=== PATIENT | male | born 1940 | race Caucasian/White ===

== ENCOUNTER → 2018-06-27 10:35 | Outpatient (REF) | payer OTHER, SELFPAY ==
[2018-06-27 20:53] LABS: HCT 42.7 % (40.0-50.0); HGB 13.7 g/dL (13.5-17.5)
[2018-06-27 21:09] LABS: ALT 30 U/L (12-78); AST 21 U/L (15-37); Albumin 3.9 g/dL (3.4-5.0); Alkaline Phosphatase 126 U/L (46-116); Anion Gap 9.1 mmol/L (3-11); BUN 16 mg/dL (7-18); Bilirubin, Total 0.7 mg/dL (0.2-1.0); CO2 23.9 mmol/L (21.0-32.0); CREATININE 1.56 mg/dL (0.70-1.30); Calcium 8.8 mg/dL (8.5-10.1); Chloride 107 mmol/L (98-107); Cholesterol 120 mg/dL (50-200); Estimated GFR 43.04 (mL/min/1.73m2); Glucose 123 mg/dL (70-100); HDL Cholesterol 46 mg/dL (40-60); LDL CHOLESTEROL 61 mg/dL (<100); Potassium 4.9 mmol/L (3.5-5.1); Sodium 140 mmol/L (136-145); Total Protein 7.1 g/dL (6.4-8.2); Triglyceride 119 mg/dL (30-150)
== END ==
LOC: NCHCN 10:35
PROVIDERS: PCP Family Medicine; Visit Provider Family Medicine
DX: E11.65 Type 2 diabetes mellitus with hyperglycemia (principal); E78.5 Hyperlipidemia, unspecified; C67.9 Malignant neoplasm of bladder, unspecified; Z93.6 Other artificial openings of urinary tract status
CPT/HCPCS: 80053; 80061; 83721; 85014; 85018

== ENCOUNTER 2019-06-24 14:44 | Outpatient (REF) | payer OTHER, SELFPAY ==
[2019-06-24 21:41] LABS: HGB 14.1 g/dL (13.5-17.5); Mean Corpuscular Hemoglobin 29.1 pg (27.0-33.0); Mean Corpuscular Volume 90.9 fL (80-95); Mean Platelet Volume 11.8 fL (8.0-11.0); Platelet Count 276 x1000/uL (130-400); RBC 4.84 m/cumm (4.50-6.00); RBC Distribution Width 16.8 % (11.8-14.1); White Blood Cell Count 8.13 k/cumm (4.4-10.8)
[2019-06-24 22:06] LABS: ALT 18 U/L (16-63); AST 20 U/L (15-37); Albumin 4.1 g/dL (3.4-5.0); Alkaline Phosphatase 182 U/L (46-116); Anion Gap 15.7 mmol/L (3-11); BUN 45 mg/dL (7-18); Bilirubin, Total 0.5 mg/dL (0.2-1.0); CO2 11.3 mmol/L (21.0-32.0); CREATININE 2.72 mg/dL (0.70-1.30); Calcium 8.7 mg/dL (8.5-10.1); Chloride 113 mmol/L (98-107); Glucose 146 mg/dL (70-100); Sodium 140 mmol/L (136-145); TSH (W/Ref FT4) 1.79 uIU/mL (0.36-3.74)
[2019-06-24 22:23] LABS: ESR 26 mm/hr (1-20)
[2019-06-24 22:27] LABS: C-Reactive Protein 1.25 mg/dL (0.0-0.3); Total Protein 7.8 g/dL (6.4-8.2)
== END 2019-06-24 15:04 ==
LOC: NCHCN 14:44
PROVIDERS: PCP Family Medicine; Visit Provider Family Medicine
DX: R63.4 Abnormal weight loss (principal); E11.65 Type 2 diabetes mellitus with hyperglycemia; G70.00 Myasthenia gravis without (acute) exacerbation; R27.0 Ataxia, unspecified; R05 Cough; C67.9 Malignant neoplasm of bladder, unspecified
CPT/HCPCS: 80053; 85027; 85652; 84443; 86140

== ENCOUNTER 2019-07-04 14:38 | Outpatient (REF) | payer OTHER, SELFPAY ==
[2019-07-04 19:50] LABS: HCT 41.2 % (40.0-50.0); Mean Corp. HGB Concentration 31.6 g/dL (32.0-36.0); Mean Corpuscular Hemoglobin 28.7 pg (27.0-33.0); Mean Corpuscular Volume 90.9 fL (80-95); Mean Platelet Volume 11.5 fL (8.0-11.0); Platelet Count 265 x1000/uL (130-400); RBC 4.53 m/cumm (4.50-6.00); RBC Distribution Width 16.9 % (11.8-14.1); White Blood Cell Count 8.28 k/cumm (4.4-10.8)
[2019-07-04 19:57] LABS: Anion Gap 16.2 mmol/L (3-11); BUN 58 mg/dL (7-18); C-Reactive Protein 1.08 mg/dL (0.0-0.3); CO2 10.8 mmol/L (21.0-32.0); CREATININE 3.17 mg/dL (0.70-1.30); Calcium 8.4 mg/dL (8.5-10.1); Chloride 113 mmol/L (98-107); Estimated GFR 18.94 (mL/min/1.73m2); Glucose 209 mg/dL (70-100); Magnesium 1.7 mg/dL (1.8-2.4); Potassium 4.1 mmol/L (3.5-5.1); Sodium 140 mmol/L (136-145)
== END 2019-07-04 14:58 ==
LOC: NCHCN 14:38
PROVIDERS: PCP Family Medicine; Visit Provider Family Medicine
DX: N28.9 Disorder of kidney and ureter, unspecified (principal); R53.83 Other fatigue; S51.002A Unspecified open wound of left elbow, initial encounter
CPT/HCPCS: 80048; 85027; 83735; 84100; 86140; 87070; 87205

== ENCOUNTER 2019-07-22 15:05 | Outpatient (REF) | payer OTHER, SELFPAY ==
[2019-07-22 21:55] LABS: Anion Gap 10.7 mmol/L (3-11); BUN 30 mg/dL (7-18); CO2 29.3 mmol/L (21.0-32.0); CREATININE 2.76 mg/dL (0.70-1.30); Calcium 7.2 mg/dL (8.5-10.1); Chloride 100 mmol/L (98-107); Estimated GFR 22.22 (mL/min/1.73m2); Glucose 150 mg/dL (70-100); Magnesium 1.4 mg/dL (1.8-2.4); Potassium 3.5 mmol/L (3.5-5.1); Sodium 140 mmol/L (136-145)
== END 2019-07-22 15:25 ==
LOC: NCHCN 15:05
PROVIDERS: PCP Family Medicine; Visit Provider Family Medicine
DX: N28.9 Disorder of kidney and ureter, unspecified (principal); R63.4 Abnormal weight loss; E11.65 Type 2 diabetes mellitus with hyperglycemia
CPT/HCPCS: 80048; 83735; 84100

== ENCOUNTER → 2019-07-24 12:30 | Outpatient (BNVA) | payer OTHER, SELFPAY | PROVIDERS: PCP Family Medicine; Referring Provider Family Medicine; Visit Provider Psychiatry & Neurology Neurology | DX: G70.00 Myasthenia gravis without (acute) exacerbation (principal); G25.0 Essential tremor; R29.898 Other symptoms and signs involving the musculoskeletal system; I48.0 Paroxysmal atrial fibrillation; Z87.891 Personal history of nicotine dependence | CPT/HCPCS: 99215 ==

== ENCOUNTER 2019-07-25 12:45 | Outpatient (REF) | payer OTHER, SELFPAY ==
[2019-07-25 20:31] LABS: BUN 24 mg/dL (7-18); CREATININE 2.48 mg/dL (0.70-1.30); Calcium 7.4 mg/dL (8.5-10.1); Chloride 101 mmol/L (98-107); Estimated GFR 25.14 (mL/min/1.73m2); Glucose 217 mg/dL (70-100); Magnesium 1.4 mg/dL (1.8-2.4); PHOSPHORUS 2.1 mg/dL (2.6-4.7); Potassium 3.5 mmol/L (3.5-5.1); Sodium 139 mmol/L (136-145)
== END 2019-07-25 13:05 ==
LOC: NCHCN 12:45
PROVIDERS: PCP Family Medicine; Visit Provider Specialist/Technologist Athletic Trainer
DX: E87.2 Acidosis (principal); N28.9 Disorder of kidney and ureter, unspecified
CPT/HCPCS: 80048; 83735; 84100

== ENCOUNTER 2019-08-01 12:40 | Outpatient (REF) | payer OTHER, SELFPAY ==
[2019-08-01 19:12] LABS: HCT 34.3 % (40.0-50.0); HGB 10.5 g/dL (13.5-17.5); Mean Corp. HGB Concentration 30.6 g/dL (32.0-36.0); Mean Corpuscular Hemoglobin 29.4 pg (27.0-33.0); Mean Corpuscular Volume 96.1 fL (80-95); Mean Platelet Volume 11.3 fL (8.0-11.0); Platelet Count 258 x1000/uL (130-400); RBC 3.57 m/cumm (4.50-6.00); RBC Distribution Width 15.3 % (11.8-14.1); White Blood Cell Count 5.73 k/cumm (4.4-10.8)
[2019-08-01 19:28] LABS: ALT 15 U/L (16-63); AST 16 U/L (15-37); Alkaline Phosphatase 127 U/L (46-116); BUN 21 mg/dL (7-18); Bilirubin, Total 0.5 mg/dL (0.2-1.0); CREATININE 1.96 mg/dL (0.70-1.30); Calcium 8.3 mg/dL (8.5-10.1); Chloride 106 mmol/L (98-107); Estimated GFR 32.99 (mL/min/1.73m2); Glucose 174 mg/dL (70-100); Magnesium 1.7 mg/dL (1.8-2.4); PHOSPHORUS 2.5 mg/dL (2.6-4.7); Sodium 143 mmol/L (136-145); Total Protein 6.3 g/dL (6.4-8.2)
== END 2019-08-01 13:00 ==
LOC: NCHCN 12:40
PROVIDERS: PCP Family Medicine; Visit Provider Family Medicine
DX: E87.2 Acidosis (principal); N28.9 Disorder of kidney and ureter, unspecified
CPT/HCPCS: 80053; 85027; 83735; 84100

== ENCOUNTER 2019-08-20 16:23 | Outpatient (REF) | payer OTHER, SELFPAY ==
[2019-08-20 20:18] LABS: Anion Gap 9.4 mmol/L (3-11); BUN 22 mg/dL (7-18); CO2 27.6 mmol/L (21.0-32.0); CREATININE 1.86 mg/dL (0.70-1.30); Calcium 9.1 mg/dL (8.5-10.1); Chloride 106 mmol/L (98-107); Estimated GFR 35.04 (mL/min/1.73m2); Glucose 144 mg/dL (70-100); Potassium 4.3 mmol/L (3.5-5.1); Sodium 143 mmol/L (136-145)
== END 2019-08-20 16:43 ==
LOC: LBN 16:23
PROVIDERS: PCP Family Medicine; Visit Provider Family Medicine
DX: N18.3 Chronic kidney disease, stage 3 (moderate) (principal)
CPT/HCPCS: 80048

== ENCOUNTER 2019-09-02 12:49 | Outpatient (REF) | payer OTHER, SELFPAY ==
[2019-09-02 22:00] LABS: HCT 36.6 % (40.0-50.0); HGB 10.9 g/dL (13.5-17.5)
[2019-09-02 22:01] LABS: BUN 28 mg/dL (7-18); CREATININE 1.84 mg/dL (0.70-1.30); Calcium 9.2 mg/dL (8.5-10.1); Chloride 106 mmol/L (98-107); Estimated GFR 35.48 (mL/min/1.73m2); Glucose 327 mg/dL (70-100); Magnesium 2.1 mg/dL (1.8-2.4); Potassium 4.8 mmol/L (3.5-5.1); Sodium 142 mmol/L (136-145)
== END 2019-09-02 13:09 ==
LOC: NCHCN 12:49
PROVIDERS: PCP Family Medicine; Visit Provider Family Medicine
DX: N28.9 Disorder of kidney and ureter, unspecified (principal); K62.5 Hemorrhage of anus and rectum
CPT/HCPCS: 80048; 83735; 85014; 85018

== ENCOUNTER → 2019-09-29 14:56 | Outpatient (BNVA) | payer OTHER, SELFPAY | PROVIDERS: PCP Family Medicine; Referring Provider Family Medicine; Visit Provider Surgery | DX: K62.5 Hemorrhage of anus and rectum (principal); E11.9 Type 2 diabetes mellitus without complications; J44.9 Chronic obstructive pulmonary disease, unspecified | CPT/HCPCS: 99204; 99215 ==

== ENCOUNTER 2019-10-03 06:57 | Day surgery (SDC) | payer OTHER, SELFPAY ==
[2019-10-03 07:35] VITALS: BP 152/83; PULSE 72; RESP 16; TEMP 36.3; O2SAT 99
--- NOTE | 2019-10-03 07:59 | W.PM.DSUDISC ---
Discharge Plan Disposition Patient Disposition: HOME Condition: Good Discharge Details Reason For Visit: Colonoscopy Attending Provider: Adeline Jaramillo Primary Care Provider: Gala Carmichael V Home Meds and New Rx's Prescriptions: Continued pantoprazole [Protonix] 20 mg tablet,delayed release (DR/EC) 20 mg PO DAILY RF: 0 albuterol sulfate [ProAir HFA] 90 mcg/actuation HFA aerosol inhaler 2 puff IH Q6H PRNRF: 0 (DME) OneTouch Ultra Test 1 EACH strip 1 ea Miscellaneous BID RF: 0 (DME) lancets [OneTouch UltraSoft Lancets] 1 EACH misc 1 ea Miscellaneous BID RF: 0 (DME) blood-glucose meter [OneTouch UltraMini] 1 EACH kit 1 ea Miscellaneous BID RF: 0 simvastatin 20 MG tablet 20 mg PO DAILY RF: 0 aspirin 81 MG tablet,chewable 81 mg PO DAILY RF: 0 albuterol sulfate [ProAir HFA] 8.5 GM HFA aerosol inhaler 2 puff Inhalation Q6H PRN RF: 0 Atrovent HFA 12.9 GM HFA aerosol inhaler 34 mcg Inhalation Q6H PRN RF: 0 ascorbic acid (vitamin C) 500 mg capsule 500 mg PO DAILY RF: 0 Atrovent HFA 17 mcg/actuation HFA aerosol inhaler 2 puff IH QID PRNRF: 0 latanoprost 0.005 % drops 1 drp OP DAILY RF: 0 ipratropium-albuterol 0.5 mg-3 mg(2.5 mg base)/3 mL solution for nebulization 3 ml IH Q4H PRNRF: 0 pyridostigmine bromide 60 mg tablet 30 mg PO TID Qty: 270 RF: 3 sodium bicarbonate 650 mg Tablet 1,300 mg PO BID RF: 0 ergocalciferol (vitamin D2) [Vitamin D2] 50,000 unit Capsule 50,000 unit PO QWEEK RF: 0 magnesium oxide 400 mg magnesium Tablet 400 mg PO BID RF: 0 Discharge Instructions Additional Instructions: Findings: A mass was found in the colon. This was biopsied and my office will contact you with biopsy results. Follow up: A referral will be made to [place] [facility] [place]. Please call if you develop: fevers >101.5 Nausea or Vomiting Abdominal pain that is not transient DAY SURGERY UNIT POST COLONOSCOPY INSTRUCTIONS 1. Because there will be medication in your system for the next 24 hours, you may feel a little sleepy. Your coordination will be affected. Therefore: a. Do not drive or operate dangerous equipment for 24 hours. b. Do not drink alcohol beverages for 24 hours (not even beer). c. Plan to go home and rest for the day. 2. Generally there are no restrictions on your activity after a day or so has gone by, but you may feel a bit fatigued for a few days. 3 After you arrive home you may have a light meal and return to a normal diet as you can tolerate it without feeling sick to your stomach. 4. After surgery, you may feel pain or discomfort. This should be only transient, but if it persists please contact your doctor. 5. If there are any questions regarding the findings of your procedure, please feel free to contact your doctor. 6. If you are unable to contact your doctor with a problem, contact the hospital at [phone]. 7. Continue all your regular medications unless directed otherwise. I understand the above instructions and have no questions. Signature of Patient or Responsible Adult Escort Date/Time Name of Responsible Adult Escort Signature of Nurse Date/Time Activity:: Activity as Tolerated Diet:: As Tolerated Discharge Orders Discharge Orders: Discharge Order (Routine); Ordered 10/03/19 Ordered By: Adeline Jaramillo DS: Diagnosis Discharge Diagnosis (1) Colonic mass: Status: Acute
[2019-10-03] MEDS: Lactated Ringers 1,000 ML 80 ML IV (08:07)
[2019-10-03] MEDS: Endoscopic Tattoo 5 ML SYR IJ (08:51)
--- NOTE | 2019-10-03 08:54 | BOWEL_PTH ---
PATIENT: TAMIKA SORTO LOC: CHAR U#:[id number] AGE/SX: 79/M ROOM: RE10/03/[address]: Adeline Jaramillo MD : [id number] BED: DIS: 10/03/2019 SPEC #: [id number] RECD: 10/03/19 12:24 STATUS: OMAR REQ #: [id number] JULIETH: 10/03/19 08:[address]: Adeline Jaramillo DEPT: Surgical Specimen RECD BY: Moraima Pollard ENTERED: 10/03/19 12:25 SP TYPE: Bowel OTHR DR: Gala Carmichael V Tissues: 1 - BIOPSY BOWEL Procedures: GROSS AND MICRO LEVEL 4 Comments: [id number]
[2019-10-03 09:26] VITALS: BP 137/83; PULSE 62; RESP 16; TEMP 36.3; O2SAT 97
--- NOTE | 2019-10-03 12:54 | COLE_ITS ---
DATE OF PROCEDURE: October 03, 2019 PREOPERATIVE DIAGNOSIS: 1. Rectal bleeding. 2. Change in bowel habits. POSTOPERATIVE DIAGNOSIS: Mass at 20 cm PROCEDURE: Colonoscopy with tattooing and biopsy of colonic mass. SURGEON: Adeline Jaramillo M.D. ANESTHESIA: General. INDICATIONS: This is an 79-year-old man who has bleeding with almost every bowel movement. He also notes some urgency and incontinence. He denies abdominal pain. He has also had a decline in his hem oglobin to 10.9 from a normal value in May. He has not had a previous colonoscopy. PROCEDURE: He was placed in the left Whitman position. Propofol was titrated to sedation. Digital rec shannan examination revealed no abnormalities. The scope was advanced into the rectum. A mass was evide nt in the rectosigmoid region at 20 cm. This occupied about half the lumen of the colon, but was not causing an obstruction. This was quite friable and had an appearance consistent with a malignancy. The scope was advanced to the cecum without difficulty. The ileocecal valve and appendiceal orifice were clearly identified. The scope was slowly withdrawn with no other abnormalities seen within the ascending, transverse, or descending colon. Methylene Blue was injected once proximal to the mass a nd twice distal to the mass. The mass was then biopsied. The rectum was otherwise normal, including on retroflex view. He tolerated the procedure well and was stable to recovery. He will be referred to General Surgery at [facility] given his multiple comorbidities. cc: Gala Carmichael M.D.
== END 2019-10-03 10:15 | disposition home or self-care (01) ==
PROVIDERS: PCP Family Medicine; Visit Provider Surgery
PROC: 0DJD8ZZ Inspection of Lower Intestinal Tract, Via Natural or Artificial Opening Endoscopic (ICD-10-PCS; CPT 45378; principal; 2019-10-03 08:15)
DX: C18.7 Malignant neoplasm of sigmoid colon (principal); D64.9 Anemia, unspecified; R19.4 Change in bowel habit; K62.5 Hemorrhage of anus and rectum; E11.9 Type 2 diabetes mellitus without complications; K21.9 Gastro-esophageal reflux disease without esophagitis; J44.9 Chronic obstructive pulmonary disease, unspecified; Z85.51 Personal history of malignant neoplasm of bladder
CPT/HCPCS: 45380; 45381; 88305

== ENCOUNTER 2020-02-12 16:07 | Inpatient (IN) | payer OTHER, SELFPAY ==
[2020-02-12] VITALS (35 sets, daily range): BP systolic 102–158; BP diastolic 46–74; PULSE 59–87; RESP 18–38; TEMP 36.5–37.5; O2SAT 89–100
--- NOTE | 2020-02-12 16:15 | DI.RAD_ITS ---
EXAM: XR PORTABLE CHEST AP CLINICAL HISTORY: cough TECHNIQUE: 2D digital imaging was performed. COMPARISON: CHEST 2 VIEWS PA,LAT from 11/04/2013 FINDINGS: MEDIASTINUM: Normal. HEART: Normal. PULMONARY VASCULATURE: Normal. LUNGS: No focal consolidating infiltrate is present. Mild interstitial prominence. PLEURAL SPACE: No pleural effusion or pneumothorax. BONE:Within normal limits for the patient's age. OTHER FINDINGS:Interval placement of a dual lead cardiac device. IMPRESSION: Mild prominent interstitium. This may represent pulmonary edema or atypical infection. Please corre late clinically. DATA REPOSITORY: RADIATION DOSE DELIVERED:
--- NOTE | 2020-02-12 16:38 | ED.GENADUL_ITS ---
Discharge Plan Discharge Details Chief Complaint: Fever Admit Date/Time: 02/12/20 16:53 Admit Provider: Juli Armando Attending Provider: Juli Armando Primary Care Provider: Gala Carmichael V ED Provider: Gavino Rico Medical Decision Making 16:45 --79-year-old male here with cough, shortness of breath, fever and chills. Patient is saturating in upper 80s. Oxygen was applied and now saturating in low 90s on 2 L nasal cannula. He is tachypneic but otherwise with no respiratory distress. Patient is hemodynamically stable. Concern for pneumonia versus possibly COVID-19. Screening ECG was reviewed and interpreted by me: V paced, appropriately disc concordant, nondiagnostic. Decision to obtain outside hospital records from [facility] [place]. I received outside hospital records, colorectal surgery outpatient consultation note from 02/02/2020 which notes history of bladder cancer, chronic kidney disease stage III, COPD, myasthenia gravis, AAA, A. fib, hypertrophic cardiomyopathy, adenocarcinoma of the rectosigmoid, status post resection, declined chemotherapy and plan for continued surveillance. We will obtain stat portable chest x-ray. Plan to admit the patient to RICU. I called and spoke with the hospitalist, Dr. Armando, who will admit the patient but requested labs be resulted and reviewed pr ior to transfer to RICU. --I spoke with the transfer and pumphouse operator now a couple times. We are having the open the RICU unit and identify staffing. I spoke with the patient's and updated her as to plan. I have requested from the soakers supervisor capability to allow family to call and speak with the patient by video conferencing. Analysis Engineer is looking into this. Patient's has a cell phone . --I reviewed chest x-ray: question right middle lobe infiltrate. Plan to treat with ceftriaxone 1 g IV and azithromycin 500 mg IV. 17:45 --Chest x-ray was reviewed and interpreted by radiology: Prominent indistinct pulmonary vasculature consistent with pulmonary edema versus less likely atypical infection. No focal consolidation. Interval placement left implantable cardiac device with lead projecting over the right atrium and right ventricular apex. Concern for potential COVID-19. Patient should be considered high risk PUI. 19:45 --patient has elevated d-dimer, pulmonary vascular prominence on chest x- ray, and slightly elevated troponin. Consider pulmonary embolism. Unfortunately unable to obtain CT chest given renal impairment. Lovenox contraindicated given GFR. Plan to treat with heparin for potential PE. HPI General Mode of arrival: EMS . Date/Time Provider Initiated Documentation: 02/12/20 16:11 . Limitations to Documentation: language barrier (patient hard of hearing and cannot read lips 2/2 mask) . Information obtained by: EMS . HPI Narrative: 79-year-old male with multiple medical problems including history of myasthenia gravis, rectal cancer, bladder cancer, COPD, atrial fibrillation, abdominal aneurysm, diabetes, hypertrophic cardiomyopathy, here with chief complaint of cough. Patient has had cough for the past 2 days. Cough is intermittently productive. Cough is moderate with no modifiers. He has associated fever. Patient denies pain. No recent travel other than to [place]. History is limited secondary to patient inability to hear, does not know sign language, cannot read lips as facemask needed. Related Data Home Medications Medication Instructions Recorded Confirmed Atrovent HFA 34 mcg INHALATION Q6H PRN inhaler 09/06/16 02/12/20 OneTouch Ultra Test strip 09/06/16 09/29/19 albuterol sulfate [ProAir HFA] 2 puff INHALATION Q6H PRN inhaler 09/06/16 02/12/20 aspirin 81 mg PO DAILY tab-cap 09/06/16 02/12/20 blood-glucose meter [[employer]Touch kit 09/06/16 09/29/19 UltraMini] lancets [[employer] UltraSoft ea 09/06/16 09/29/19 Lancets] simvastatin 20 mg PO DAILY tab-cap 09/06/16 02/12/20 ascorbic acid (vitamin C) 500 mg 500 mg PO DAILY cap 07/11/19 02/12/20 capsule ipratropium 0.5 mg-albuterol 3 mg 3 ml IH Q4H PRN 07/11/19 02/12/20 (2.5 mg base)/3 mL nebulization soln ipratropium bromide 17 2 puff IH QID PRN 07/11/19 02/12/20 mcg/actuation HFA aerosol inhaler latanoprost 0.005 % eye drops 1 drp OP DAILY 07/11/19 02/12/20 pyridostigmine bromide 60 mg tablet 30 mg PO TID #270 tab-cap 07/24/19 02/12/20 albuterol sulfate 90 mcg/actuation 2 puff IH Q6H PRN 09/23/19 02/12/20 aerosol inhaler pantoprazole 20 mg tablet,delayed 20 mg PO DAILY 09/29/19 02/12/20 release ergocalciferol (vitamin D2) 50,000 unit PO QWEEK 10/01/19 02/12/20 [Vitamin D2] magnesium oxide 400 mg PO BID 10/01/19 02/12/20 sodium bicarbonate 650 mg PO BID 10/01/19 02/12/20 Allergies Allergy/AdvReac Type Severity Reaction Status Date / Time metformin Allergy Severe kidneys Verified 02/12/20 16:26 shut down lisinopril AdvReac Mild cough Unverified 02/12/20 16:41 General Stated Complaint: Fever ANTHONY: 2 Review of Systems Unobtainable due to (as per hpi) Cardiovascular Cardiovascular: Denies chest pain and Reports dyspnea Respiratory Respiratory: Reports cough and Reports dyspnea Gastrointestinal Gastrointestinal: Denies abdominal pain COUNTS INCLUDE 234 BEDS AT THE [facility] Medical History Abdominal aneurysm without mention of rupture (Acute) Allergic rhinitis (Acute) Atrial fibrillation (Chronic) COPD (chronic obstructive pulmonary disease) (Chronic) Diabetes mellitus (Chronic) GERD (gastroesophageal reflux disease) (Chronic) Hearing loss (Acute) Heart murmur (Acute) Hematochezia (Acute) Hypercholesterolemia (Acute) Hyperlipidemia (Acute) Hypertrophic cardiomyopathy (Acute) 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 Myasthenia gravis (Acute 10/16/16) Pacemaker (Acute) 2/2 heart block Shoulder fracture, right (Acute) Tobacco abuse (Acute) Surgical History H/O hernia repair (Chronic) H/O prostatectomy (Chronic) Cystoprostatectomy with bilateral lymphadenectomy with ileal loop urinary diversion 2010. H/O total cystectomy (Acute) S/P placement of cardiac pacemaker (Acute) 07/2018 S/P tonsillectomy and adenoidectomy (Acute) Family History Mother Glaucoma Brother Patient's brother is Sister Patient's sister is Social History Smoking/Tobacco Use Status: Former Tobacco Use Alcohol Intake: current Alcohol Intake frequency: a few times a week Drug use: Never Substance use type: does not use Household members: spouse current occupation: Retired maintenance Do you feel safe at home: Yes Exam Const General: cooperative HENMT Mouth: moist mucous membranes Eyes Conjunctivae: normal conjunctivae Sclera: normal sclerae Neck Neck: trachea midline, supple and no JVD Resp Effort & Inspection: not labored and tachypneic Auscultation: no rales and rhonchi Cardio Jugular venous pressure: no JVD Rate: regular rate and not tachycardic Rhythm: regular rhythm GI Palpation: soft, not firm, no guarding, no masses, not rigid and nontender Skin General skin exam: no rashes or lesions noted Neuro General: patient alert, patient awake and tone normal Extrem General: no calf tenderness and no edema Psych Appearance: grossly normal Mental Status: mental status grossly normal Course Vital Signs Vital signs: Vital Signs Temperature 36.9 C 02/12/20 16:06 Pulse 87 02/12/20 16:06 Respiratory Rate 38 H 02/12/20 16:06 Blood Pressure 158/67 H 02/12/20 16:06 Pulse Oximetry 89 L 02/12/20 16:06 Temperature 36.9 C 02/12/20 16:06 Temperature Source Skin 02/12/20 16:06 Pulse 87 02/12/20 16:06 Respiratory Rate 38 H 02/12/20 16:06 Respiratory Effort 02/12/20 16:21 Blood Pressure 158/67 H 02/12/20 16:06 Pulse Oximetry 94 L 02/12/20 16:15 Oxygen Delivery Method Nasal Cannula 02/12/20 16:15 Oxygen Flow Rate 2 02/12/20 16:15 Pain Level 0 02/12/20 16:06 Lab/Test Results Lab/Test Results: 02/12/20 16:19 Blood Blood Culture - Pending 02/12/20 16:19 Blood Blood Culture - Pending
--- NOTE | 2020-02-12 17:43 | DI.VRAD_ITS ---
PROCEDURE INFORMATION: Exam: XR Chest, 1 View Exam date and time: 02/12/2020 5:31 PM Age: 79 years old Clinical indication: Other: Cough; Prior surgery; Surgery date: 6+ months TECHNIQUE: Imaging protocol: XR of the chest Views: 1 view. COMPARISON: CR CHEST 2 VIEWS PA,LAT 11/04/2013 2:38 PM FINDINGS: Tubes, catheters and devices: Interval placement of a dual lead left implantable cardiac device. Lungs: Prominent, indistinct pulmonary vasculature. No focal consolidation. Pleural space: Unremarkable. No pleural effusion. No pneumothorax. Heart/Mediastinum: Unremarkable. No cardiomegaly. Bones/joints: Unremarkable. IMPRESSION: 1. Prominent, indistinct pulmonary vasculature consistent with pulmonary edema versus less likely atypical infection. No focal consolidation. 2. Interval placement left implantable cardiac device with leads projecting over the right atrium and right ventricular apex. Dictated and Authenticated by: Rome Marcos MD. Ordering:YOSEPH Mancia MD
[2020-02-12 17:51] LABS: Abs Immature Grans 0.05 k/cumm (0.0-0.09); Absolute Monocyte Count 0.61 k/cumm (0.11-0.7); Basophils % 0.1; HGB 12.6 g/dL (13.5-17.5); Immature Grans % 0.3 %; Lymphocytes % 2.3; Mean Corp. HGB Concentration 32.3 g/dL (32.0-36.0); Mean Corpuscular Hemoglobin 27.8 pg (27.0-33.0); Mean Corpuscular Volume 85.9 fL (80-95); Mean Platelet Volume 11.4 fL (8.0-11.0); Monocytes % 4.2; Neutrophils % 93.1; Platelet Count 130 x1000/uL (130-400); RBC 4.54 m/cumm (4.50-6.00); White Blood Cell Count 14.53 k/cumm (4.4-10.8)
[2020-02-12 17:55] LABS: Absolute Basophil Count 0.01 k/cumm (0.0-0.2); Absolute Lymphocyte Count 0.33 k/cumm (1.2-3.4); Absolute Neutrophil Count 13.53 k/cumm (1.2-6.7)
[2020-02-12] MEDS: cefTRIAXone 1 GM/50 ML BAG IVPB (18:05)
[2020-02-12 18:13] LABS: Lactate 1.6 mmol/L (0.6-1.4)
[2020-02-12 18:19] LABS: ALT 32 U/L (16-63); AST 37 U/L (15-37); Albumin 3.4 g/dL (3.4-5.0); Alkaline Phosphatase 155 U/L (46-116); Anion Gap 13.6 mmol/L (3-11); BUN 37 mg/dL (7-18); Bilirubin, Total 1.1 mg/dL (0.2-1.0); C-Reactive Protein 14.26 mg/dL (0.0-0.3); CO2 22.4 mmol/L (21.0-32.0); CREATININE 2.19 mg/dL (0.70-1.30); Calcium 9.2 mg/dL (8.5-10.1); Chloride 103 mmol/L (98-107); Estimated GFR 29.02 (mL/min/1.73m2); Glucose 241 mg/dL (74-106); LDH 176 U/L (85-227); Potassium 4.2 mmol/L (3.5-5.1); Sodium 139 mmol/L (136-145); Total Protein 7.6 g/dL (6.4-8.2)
[2020-02-12 18:21] LABS: Troponin I 0.07 ng/Ml (<0.06)
[2020-02-12 18:39] LABS: Troponin I 0.09 ng/Ml (<0.06)
[2020-02-12 18:42] LABS: D-Dimer 3925 ng/mlFEU (<500); Procalcitonin 31.6 ng/mL
[2020-02-12 18:45] LABS: Ferritin 99 ng/mL (26-388)
[2020-02-12] MEDS: Normal Saline 1,000 ML 125 ML IV (18:45)
[2020-02-12] MEDS: Normal Saline 250 ML 500 ML IV (18:48)
[2020-02-12] MEDS: AZITHROMYCIN 500 MG in Normal Saline 250 ML 250 MG IVPB (18:49)
--- NOTE | 2020-02-12 19:59 | W.PM.HP.N ---
Date of service: 02/12/20 Time of Service: 19:59 Assessment and Plan Assessment and plan (1) HCAP (healthcare-associated pneumonia): Status: Acute Assessment and plan: although his CXR did not demonstrate segmental or lobar consolidation, he definitely has focalized B lines in his RLL especially posteriorly. There are few scattered B lines at his LLL but not nearly as much so as in his RLL. I did not see any effusions nor any subpleural consolidations nor hepatization of his lung. He still could have COVID 19 although there has been no known exposure although I suppose he could have been exposed while at [facility] [place] however he is way past the incubation period. I think that his CXR just has not matured yet while his US has shown changes. he was put on Ceftriaxone and Azithromycin in the ER. I have switched the Ceftriaxone to Cefepime, added Vancomycin given his hospital exposure in the past 6 weeks and continued the Azithromycin although switched to oral to decr. that amount of fluids. Will test for Covid and RSV and screen for MRSA. Cont. supportive care w/ oxygen per PA and scheduled Combivent MDI and prn albuterol MDI. 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 I am not sure if he is currently taking this. When I interviewed him in the Respiratory unit it was difficult to communicated d/t his being hard of hearing and I was wearing a PAPR. Also I did not have his chemo information until I reviewed his [facility] [place]. He was last seen by Dr. Yousif Vasquez and Dr. Chris Ware at [facility] on 01/20 (3) Myasthenia gravis: Status: Acute Assessment and plan: continue current dose of pyridostigmine (4) Diabetes mellitus: Status: Chronic Assessment and plan: not currently on insulin treatment. previously was on metformin but discontinued d/t CKD. Will check A1c in the a.m. and put him on AC/HS glucose checks along w/ sliding scale insulin coverage. Qualifiers: Diabetes mellitus type: type 2 Diabetes mellitus nursing home insulin use: without terminal gauger use Diabetes mellitus complication status: with kidney complications Diabetes mellitus complication detail: with chronic kidney disease (5) COPD (chronic obstructive pulmonary disease): Status: Chronic Assessment and plan: given that he is being ruled out for COVID, I am not going to use corticosteroids but will put him on scheduled dosing of Combivent and prn albuterol MDI along w/ supplemental oxygen and parenteral antibiotics as outlined above. Qualifiers: COPD type: COPD with acute lower respiratory infection Qualified Code(s): J44.0 - Chronic obstructive pulmonary disease with (acute) lower respiratory infection (6) Chronic kidney disease: Status: Acute Assessment and plan: continue gently iv hydration and repeat his BMP in the a.m. Watch urine output closely. Qualifiers: Chronic kidney disease stage: stage 3 (moderate) Qualified Code(s): N18.3 - Chronic kidney disease, stage 3 (moderate) (7) Hypertrophic cardiomyopathy: Status: Acute Assessment and plan: I did a focused bedside echo and he has mild LV dysfunction w/ LVH particularly of his septum. Once his COVID 19 test comes back, then we can safely decide on getting a formal echo. For now I think that his primary problem is that of pneumonia. He has no peripheral edema to suggest overt volume overload and no pleural effusions and his B lines are more focal in the RLL as opposed to diffuse B line pattern in bilateral upper and lower lung zones which would have been more compatible w/ acute CHF (8) Elevated d-dimer: Status: Acute Assessment and plan: patient was started on heparin drip while in the ER per Dr. Rico d/t elevated d-dimer. While I can not disagree w/ this as the patient could have had a thromboembolic event (particularly if his COVID 19 test comes back positive), nevertheless he has no calf or thigh swelling or pain and his d-dimer could be elevated d/t bacterial pneumonia or d/t his underlying malignancy. Since his CKD precluded getting a formal CTA of his chest, I will continue his heparin drip for now. If his COVID 19 test is negative then we can get a V/Q scan and formal venous duplex of his legs. History of Present Illness History of Present Illness Chief Complaint: cough, short of breath, fever and chills Narrative: 79 yr old male w/ PMH of stg IIIA rectosigmoid adenocarcinoma s/p [place] 12/30/[place] [facility] [place], prior cystoprostatectomy for transitional cell CA in 2009, hx of COPD, HTN, hypertrophic cardiomyopathy, myasthenia gravis, CKD III, DM2 (not on insulin), PAF (not on anticoagulation), GERD and SSS s/p pacer. He presents w/ 2d cough prod. of purulent sputum, fever, rigors and dyspnea but no chest pain. He denies any ill contacts nor any association w/ anyone w/ COVID-19 nor any travel outside of [place] except to [facility] [place]last trip was for his surgery in early December). Upon arrival to the ER he was found to be acutely dyspneic and tachypneic (RR 38) and hypoxemic (SpO2 89%) which responded to O2 of 2 LPM to SpO2 of 94%. Labs: WBC 14,500 w/ 13,500 neutrophils, CMP: BUN 37, creatininie 2.19 (baseline 28 and 1.84 respectively). Lactate 1.6 and procalcitonin 31.6. Troponin 0.07, 0.09 and 0.08. d-dimer 3925. CXR w/ prominent indistinct pulmonary vascularture but no focal segmental or lobar consolidation, no pleural effusion, no cardiomegaly. Treatment in the ER included obtaining blood cultures and intiation of Ceftriaxone and Azithromycin and supplemental oxygen. Patient is now admitted to the Respiratory unit for treatment of pneumonia and to rule out COVID-19. [facility] Medical History (Updated 02/13/20 @ 01:14 by Stevenson Cannon) Abdominal aneurysm without mention of rupture (Acute) Allergic rhinitis (Acute) Atrial fibrillation (Chronic) Chronic kidney disease (Acute) COPD (chronic obstructive pulmonary disease) (Chronic) Diabetes mellitus (Chronic) GERD (gastroesophageal reflux disease) (Chronic) Hearing loss (Acute) Heart murmur (Acute) Hematochezia (Acute) Hypercholesterolemia (Acute) Hyperlipidemia (Acute) Hypertrophic cardiomyopathy (Acute) 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 Myasthenia gravis (Acute 10/16/16) Pacemaker (Acute) 2/2 heart block Shoulder fracture, right (Acute) Tobacco abuse (Acute) Surgical History (Updated 02/13/20 @ 00:54 by Stevenson Cannon) H/O hernia repair (Chronic) H/O prostatectomy (Chronic) Cystoprostatectomy with bilateral lymphadenectomy with ileal loop urinary diversion 2010. H/O total cystectomy (Acute) History of low anterior resection of rectum (Acute 12/30/19) [facility] [place] Zafar Carey S/P placement of cardiac pacemaker (Acute) 07/2018 S/P tonsillectomy and adenoidectomy (Acute) Family History Mother Glaucoma Brother Patient's brother is Sister Patient's sister is Social History Smoking/Tobacco Use Status: Former Tobacco Use Alcohol Intake: current Alcohol Intake frequency: a few times a week Drug use: Never Substance use type: does not use Household members: spouse current occupation: Retired maintenance Do you feel safe at home: Yes Meds Home Medications and Allergies Home Medications Medication Instructions Recorded Confirmed Type Atrovent HFA 34 mcg INHALATION Q6H PRN inhaler 09/06/16 02/12/20 History OneTouch Ultra Test strip 09/06/16 09/29/19 History albuterol sulfate [ProAir HFA] 2 puff INHALATION Q6H PRN inhaler 09/06/16 02/12/20 History aspirin 81 mg PO DAILY tab-cap 09/06/16 02/12/20 History blood-glucose meter [ServiceNowTouch kit 09/06/16 09/29/19 History UltraMini] lancets [ServiceNowTouch UltraSoft ea 09/06/16 09/29/19 History Lancets] simvastatin 20 mg PO DAILY tab-cap 09/06/16 02/12/20 History ascorbic acid (vitamin C) 500 mg 500 mg PO DAILY cap 07/11/19 02/12/20 History capsule ipratropium 0.5 mg-albuterol 3 mg 3 ml IH Q4H PRN 07/11/19 02/12/20 History (2.5 mg base)/3 mL nebulization soln ipratropium bromide 17 2 puff IH QID PRN 07/11/19 02/12/20 History mcg/actuation HFA aerosol inhaler latanoprost 0.005 % eye drops 1 drp OP DAILY 07/11/19 02/12/20 History pyridostigmine bromide 60 mg tablet 30 mg PO TID #270 tab-cap 07/24/19 02/12/20 History albuterol sulfate 90 mcg/actuation 2 puff IH Q6H PRN 09/23/19 02/12/20 History aerosol inhaler pantoprazole 20 mg tablet,delayed 20 mg PO DAILY 09/29/19 02/12/20 History release ergocalciferol (vitamin D2) 50,000 unit PO QWEEK 10/01/19 02/12/20 History [Vitamin D2] magnesium oxide 400 mg PO BID 10/01/19 02/12/20 History sodium bicarbonate 650 mg PO BID 10/01/19 02/12/20 History Allergies Allergy/AdvReac Type Severity Reaction Status Date / Time metformin Allergy Severe kidneys Verified 02/12/20 16:26 shut down lisinopril AdvReac Mild cough Unverified 02/12/20 16:41 Exam Narrative Exam Narrative: Elderly male who is mildly tachypneic with any prolonged conversation. HEENT is unremarkable except that he is very hard of hearing Neck is supple nontender, there is overt JVD to about retirement up his sternocleido mastoid muscle. Normal carotid pulses no bruits. Lungs with diffuse bilateral expiratory wheezes and rhonchi particularly in the lower lung norris bilaterally. He has some rales at the right lung base posteriorly. Heart is regular without appreciable murmur rub or gallop. However heart tones are difficult to discern because of the quality of the stethoscope and the fact that I was wearing powered air purifier mask Abdomen soft and nontender he has a colostomy with light brown stool draining into the bag. He has an ileal conduit bag draining clear yellow urine. Lower extremities without peripheral cyanosis or edema. He has normal pedal pulses. No calf tenderness or thigh tenderness. Neurologic exam is grossly intact except for his hard of hearing Results Labs Result diagrams: 02/12/20 16:45 02/12/20 16:45 Labs: Laboratory Results - last 24 hr 02/12/20 02/12/20 02/12/20 16:45 16:45 16:45 WBC 14.53 H RBC 4.54 Hgb 12.6 L Hct 39.0 L MCV 85.9 MCH 27.8 MCHC 32.3 RDW 21.0 H Plt Count 130 MPV 11.4 H Immature Gran % 0.3 Neutrophils % 93.1 Lymphocytes % 2.3 Monocytes % 4.2 Eosinophils % 0.0 Basophils % 0.1 Absolute Neutrophils 13.53 H Absolute Lymphocytes 0.33 L Absolute Monocytes 0.61 Absolute Eosinophils 0.00 Absolute Basophils 0.01 D-Dimer Sodium 139 Potassium 4.2 Chloride 103 Carbon Dioxide 22.4 Anion Gap 13.6 H BUN 37 H Creatinine 2.19 H Estimated GFR/1.73 m2 29.02 Glucose 241 H Lactate 1.6 H Calcium 9.2 Ferritin 99 Total Bilirubin 1.1 H AST 37 ALT 32 Alkaline Phosphatase 155 H Lactate Dehydrogenase 176 Troponin I 0.07 C-Reactive Protein 14.26 H Total Protein 7.6 Albumin 3.4 Procalcitonin 31.6 02/12/20 02/12/20 16:45 18:00 WBC RBC Hgb Hct MCV MCH MCHC RDW Plt Count MPV Immature Gran % Neutrophils % Lymphocytes % Monocytes % Eosinophils % Basophils % Absolute Neutrophils Absolute Lymphocytes Absolute Monocytes Absolute Eosinophils Absolute Basophils D-Dimer 3925 H Sodium Potassium Chloride Carbon Dioxide Anion Gap BUN Creatinine Estimated GFR/1.73 m2 Glucose Lactate Calcium Ferritin Total Bilirubin AST ALT Alkaline Phosphatase Lactate Dehydrogenase Troponin I 0.09 H* C-Reactive Protein Total Protein Albumin Procalcitonin Last Vital Signs Temp 36.9 C 02/12/20 16:06 Pulse 64 02/12/20 19:00 Resp 23 02/12/20 19:10 BP 124/65 02/12/20 19:00 Pulse Ox 97 02/12/20 19:10 COVID-19 Screening Traveled to [place] from one of the affected countries or regions?: NO Recent travel in the [place] within the last 8 weeks?: No Recent out of the country travel within the last 8 weeks?: No Exposure or possible exposure to illness during travel?: No Have you had the following symptoms in the past few days?: Yes Symptoms noted since travel?: Fever and Lower Respiratory
[2020-02-12 22:41] LABS: Lactate 1.4 mmol/L (0.6-1.4)
[2020-02-12 23:03] LABS: Troponin I 0.08 ng/Ml (<0.06)
[2020-02-13] VITALS (10 sets, daily range): BP systolic 105–164; BP diastolic 67–87; PULSE 64–70; RESP 18–24; TEMP 35.8–37.8; O2SAT 95–100
[2020-02-13] MEDS: CEFEPIME 1 GM in Normal Saline 50 ML IVPB ×3 (01:25→23:36)
[2020-02-13] MEDS: Sodium Bicarbonate 650 MG TAB PO ×2 (01:35→09:02)
[2020-02-13] MEDS: Ipratropium/Albuterol 4 GM 120 PUFF INH IH ×5 (02:13→20:05)
[2020-02-13] MEDS: Normal Saline 1,000 ML 85 ML IV (02:17)
[2020-02-13] MEDS: VANCOMYCIN 1,250 MG in Normal Saline 250 ML 166.667 MG IVPB (02:44)
[2020-02-13 03:59] LABS: PTT Activated > 155.0 sec (21.0-31.4)
--- NOTE | 2020-02-13 05:42 | NUR.NOTE ---
Nursing Note: PTT was critically high, contacted who said to hold heparin drip for 2 hours and retake PTT
[2020-02-13 06:39] LABS: Abs Immature Grans 0.02 k/cumm (0.0-0.09); HCT 36.6 % (40.0-50.0); HGB 11.8 g/dL (13.5-17.5); Mean Corp. HGB Concentration 32.2 g/dL (32.0-36.0); Mean Corpuscular Hemoglobin 28.1 pg (27.0-33.0); Mean Corpuscular Volume 87.1 fL (80-95); Mean Platelet Volume 11.2 fL (8.0-11.0); RBC Distribution Width 21.3 % (11.8-14.1); White Blood Cell Count 14.04 k/cumm (4.4-10.8)
[2020-02-13 07:08] LABS: ALT 25 U/L (16-63); AST 35 U/L (15-37); Albumin 2.8 g/dL (3.4-5.0); Alkaline Phosphatase 116 U/L (46-116); Anion Gap 9.4 mmol/L (3-11); BUN 36 mg/dL (7-18); Bilirubin, Total 0.6 mg/dL (0.2-1.0); CO2 23.6 mmol/L (21.0-32.0); CREATININE 1.86 mg/dL (0.70-1.30); Calcium 8.4 mg/dL (8.5-10.1); Chloride 107 mmol/L (98-107); Estimated GFR 35.04 (mL/min/1.73m2); Glucose 181 mg/dL (74-106); NT-proBNP 6772 pg/mL (<300); Potassium 4.8 mmol/L (3.5-5.1); Sodium 140 mmol/L (136-145); TSH (W/Ref FT4) 1.53 uIU/mL (0.36-3.74); Total Protein 6.9 g/dL (6.4-8.2); Troponin I 0.05 ng/Ml (<0.06)
[2020-02-13 07:15] LABS: Absolute Lymphocyte Count 1.12 k/cumm (1.2-3.4); Absolute Monocyte Count 1.12 k/cumm (0.11-0.7); Absolute Neutrophil Count 11.79 k/cumm (1.2-6.7); Anisocytosis 2+; Diff Comment Manual Differential; Platelet Count 114 x1000/uL (130-400); Polychromasia Present
[2020-02-13 08:54] LABS: Creatine Kinase 292 U/L (39-308)
[2020-02-13] MEDS: Azithromycin 250 MG TAB PO (09:02)
[2020-02-13] MEDS: Magnesium Oxide 400 MG TAB PO (09:02)
[2020-02-13] MEDS: Simvastatin 20 MG TAB PO (09:02)
[2020-02-13] MEDS: Insulin Aspart 300 UNITS/3 ML PEN SC ×4 (09:03→23:37)
[2020-02-13] MEDS: Ascorbic Acid 500 MG TAB PO (09:03)
[2020-02-13] MEDS: Aspirin 81 MG CHEW PO (09:03)
[2020-02-13] MEDS: Pantoprazole 20 MG TABCR PO (09:03)
[2020-02-13 09:04] LABS: D-Dimer 2155 ng/mlFEU (<500)
[2020-02-13] MEDS: Latanoprost 0.005% 2.5 ML BTL OP (09:04)
[2020-02-13 09:54] LABS: PTT Activated 34.6 sec (21.0-31.4)
--- NOTE | 2020-02-13 11:06 | PHA.REVIEW ---
Pharmacy Admission Review - Admission Clinical Review (Last Updated 02/13/20 @ 00:56 by Stevenson Cannon) Elevated d-dimer (Acute) Hypertrophic cardiomyopathy (Acute) Chronic kidney disease (Acute) HCAP (healthcare-associated pneumonia) (Acute) Adenocarcinoma of rectosigmoid junction (Acute) Myasthenia gravis (Acute 10/16/16) metformin Allergy (Severe, Verified 02/12/20 16:26) kidneys shut down lisinopril Adverse Reaction (Mild, Unverified 02/12/20 16:41) cough Height 5 ft 11 in Weight 87.09 kg - Renal Dosing Renal Dosing: BUN 36 mg/dL (7-18) H 02/13/20 06:00 Creatinine 1.86 mg/dL (0.70-1.30) H 02/13/20 06:00 Medications needing adjustments: Reviewed (CRCL ~33ML/MIN) - Anticoagulation Anticoagulation: Hgb 11.8 g/dL (13.5-17.5) L 02/13/20 06:00 Hct 36.6 % (40.0-50.0) L 02/13/20 06:00 Plt Count 114 x1000/uL (130-400) L 02/13/20 06:00 Creatinine 1.86 mg/dL (0.70-1.30) H 02/13/20 06:00 DVT Prohphylaxis: N/A (pt on heparin drip for possible DVT/PE, testing to be done if covid-19 results negative) Therapeutic Anticoagulation: Reviewed Medications: Heparin - Opiate Usage Evaluate Pain Scale/Pains Meds: Reviewed Scheduled Bowel Reg ordered if on Opiates?: No (PRN meds ordered) - Relevant Labs Sodium 140 mmol/L (136-145) 02/13/20 06:00 Potassium 4.8 mmol/L (3.5-5.1) 02/13/20 06:00 Chloride 107 mmol/L (98-107) 02/13/20 06:00 Magnesium 2.0 mg/dL (1.8-2.4) 02/13/20 06:00 C-Reactive Protein 14.26 mg/dL (0.0-0.3) H 02/12/20 16:45 Electrolytes, C-Reactive P, ESR: Reviewed - DM Control DM Control: Glucose 181 mg/dL (74-106) H 02/13/20 06:00 Finger Stick Blood Glucose 177 Finger Stick Blood Glucose 177 Insulin Dosing: Reviewed (insulin aspart SS ordered) - Heart Failure/NC Heart Failure/NC: Troponin I 0.05 ng/Ml (<0.06) 02/13/20 06:00 NT-Pro-B Natriuret Pep 6772 pg/mL (<300) H 02/13/20 06:00 - BP Control BP Control: Blood Pressure 105/68 Blood Pressure 110/54 - Qtc Review If Elevated: Reviewed (427) - IV to PO Switch IV Medications: Reviewed (cefepime vanco IV, heparin infusion,) - Home Meds Home Med List reviewed: Reviewed (nursing to ask patient what day of the week for the order: vit D 50,000 unit q7d , patient own med pyridostigmine brought in and labled for inpt use.) - Current meds Current Medication Order Review: Reviewed
--- NOTE | 2020-02-13 12:05 | INITIAL_ITS ---
- If Service Date Differs Date of service: 02/13/20 Time of Service: 12:05 Care Management Initial Assess REASON FOR HOSPITALIZATION:: Resp Failure, COVID - 19 rule out and HCAP PAST MEDICAL HISTORY/PAST SURGICAL HISTORY:: Medical History. Abdominal aneurys m without mention of rupture. Allergic rhinitis. Atrial fibrillation. Chronic kidney disease. COPD (chronic obstructive pulmonary disease) (Chronic). Diabetes mellitus (Chronic). GERD (gastroesophageal reflux disease) (Chronic). Hearing loss (Acute). Heart murmur (Acute). Hematochezia (Acute). Hypercholesterolemia (Acute). Hyperlipidemia. Hypertrophic cardiomyopathy. 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 Myasthenia gravis. Pacemaker (Acute). heart block. Shoulder fracture, right. Tobacco abuse. Surgical History (Updated 02/13/20 @ 00:54 by Stevenson Cannon). H/O hernia repair (Chronic). H/O prostatectomy (Chronic). Cystoprostatectomy with bilateral lymphadenectomy with ileal loop urinary diversion 2010. H/O total cystectomy (Acute). History of low anterior resection of rectum (Acute . S/P placement of cardiac pacemaker (Acute). 07/2018. S/P tonsillectomy and adenoidectomy (Acute) PREVIOUS FUNCTIONAL STATUS/SOCIAL/FAMILY SUPPORTS:: Asif lives at home with his spouse Yolie in [place], [place]. CURRENT FUNCTIONAL STATUS:: Abdullahi is currently in the [facility] rule out COVID. He is hard of hearing and unable to participate over the video line. CM did contact his spouse who states that he had been doing well prior to becoming suddenly ill. She states that she is able to care for him at home, in addition he does have home health nursing and PT. She would like him to return home when he is medically ready for discharge. ADVANCE DIRECTIVES:: On file from 2009 palliative care consult order. Has patient been provided with information about the portal?: No Did the patient sign up for the portal?: No CODE STATUS:: Full Code INSURANCE COVERAGE / FINANCIAL ISSUES:: [employer] CURRENT HOME/COMMUNITY SERVICES/EQUIPMENT:: Home health [facility], and PT PRIMARY CARE PHYSICIAN:: POTENTIAL DISCHARGE NEEDS:: Follow up scheduled with primary care prior to discharge, continued follow up with palliative care and ongoing oncology supports. PATIENT/FAMILY EDUCATION NEEDS:: Discharge education, limitations and follow up plan of care. CM spoke with spouse and provided education related to palliative care benefits and follow up plan. ANTICIPATED BARRIERS TO DISCHARGE:: Pending COVID rule out TRANSPORTATION:: Via private car with spouse at time of discharge. PLAN:: Abdullahi is currently receiving care in the RICU including IV abx. CM contacted Palliative care to meet with Abdullahi, he and his spouse agree to services. They would like to have as they know her from the past. CM has spoken to palliative care and they will see him next week. Abdullahi will have resumption of home health nursing when he is ready for discharge. CM to continue to assess for ongoing discharge needs.
--- NOTE | 2020-02-13 14:14 | W.NUTCONSULT ---
Date of service: 02/13/20 Time of Service: 14:14 Nutritional Consult ASSESSMENT: 79 year old male admitted to RICU with PNA, possible covid 19. PMH: stage 3 adrenocarcinoma of rectosigmoid junction, s/p surgery 12/2019 now with colostomy and urostomy, DM, CKD, COPD. Following renal Diet with poor intake (<25% of meals). Labs indicate compromised renal function, current diet appropriate. Estimated Needs: [id number] kcal, 70-80 g protein, 2000 ml fluid. Pt is not meeting nutrient needs at this time putting him at risk for nutritional decline. Recommend supplementing diet with glucerna shakes BID. NUTRITIONAL DIAGNOSIS: Inadequate nutrient intake due to poor meal acceptance INTERVENTION: renal Diet glucerna shake BID MONITORING AND EVALUATION: weight, po intake, labs Time Spent in Nutritional Counseling and Treatment: 0 time spent face to face
--- NOTE | 2020-02-13 16:44 | W.PM.PROGNOT ---
Date of Service Date of service: 02/13/20 Time of Service: 16:44 Assessment and Plan Assessment and plan (1) Sepsis: Status: Acute Assessment and plan: Due to HCAP, present on admission, as well as GNR bacteremia. Will await speciation of blood cultures. For now, continue empiric vancomycin/cefepime (azithromycin is being used in case of COVID -19 and for a possible atypical PNA). Repeat blood cultures tomorrow. Trend CRP/procalcitonin. Will need an echo once covid is ruled out. (2) Gram-negative bacteremia: Status: Acute Assessment and plan: As above (3) HCAP (healthcare-associated pneumonia): Status: Acute Assessment and plan: Present on admission. Continue empiric vancomycin/cefepime/azithromycin. (4) Suspected COVID-19 virus infection: Status: Acute Assessment and plan: Await COVID-19 testing. Pretest probability is low. Continue empiric azithromycin. 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 Consult palliative care (6) Myasthenia gravis: Status: Acute Assessment and plan: continue pyridostigmine (7) Diabetes mellitus: Status: Chronic Assessment and plan: Continue SSI Qualifiers: Diabetes mellitus complication detail: with chronic kidney disease Diabetes mellitus complication status: with kidney complications Diabetes mellitus superintendent container terminal insulin use: without assisted use Diabetes mellitus type: type 2 (8) COPD (chronic obstructive pulmonary disease): Status: Chronic Assessment and plan: Not in acute exacerbation. Continue Combivent and prn albuterol MDI. Not requiring O2 today. Qualifiers: COPD type: COPD with acute lower respiratory infection Qualified Code(s): J44.0 - Chronic obstructive pulmonary disease with (acute) lower respiratory infection (9) Chronic kidney disease: Status: Acute Assessment and plan: Mild ANNIKA resolved with IV hydration - I think, at this point the patient could use gentle diuresis. Writing for 20 mg of IV lasix. Qualifiers: Chronic kidney disease stage: stage 3 (moderate) Qualified Code(s): N18.3 - Chronic kidney disease, stage 3 (moderate) (10) Hypertrophic cardiomyopathy: Status: Acute Assessment and plan: Will need an echo on this admission. IVF dc'ed; getting gentle diuresis. (11) Elevated d-dimer: Status: Acute Assessment and plan: On empiric heparin gtt as COVID-19 can be associated with hypercoagulable state, and COVID is still being ruled out. D-dimer elevation is nonspecific, but the patient could benefit from ruling out of a PE once/if COVID is ruled out. COntinue heparin gtt. (12) DVT prophylaxis: Status: Acute Assessment and plan: ON therapeutic heparin gtt. (13) Discharge planning issues: Status: Acute Assessment and plan: Full code Palliative care consulted. Subjective Subjective Interval history since last seen: Mr Maddox states he feels better. Still feels short of breath with exertion. He is coughing less. Denies dizziness, chest pain, shortness of breath, nausea, vomiting, abdominal pain. Had chills this morning and feels cold right now. Exam Narrative Exam Narrative: General: Very pleasant elderly male, A&Ox3, sitting comfortably in a chair on room air, no respiratory distress noted HEENT: EOMI, MMM Heart: RRR with an occasional extra beat Lungs: crackles at R base Abdomen: soft, nontender Extremities: no edema BLE's, feet are cold Objective Objective Clinical Data: Abnormal lab results 02/12/20 02/12/20 02/12/20 Range/Units 16:45 16:45 16:45 WBC 14.53 H (4.4-10.8) k/cumm RBC (4.50-6.00) m/cumm Hgb 12.6 L (13.5-17.5) g/dL Hct 39.0 L (40.0-50.0) % RDW 21.0 H (11.8-14.1) % Plt Count (130-400) x1000/uL MPV 11.4 H (8.0-11.0) fL Absolute Neutrophils 13.53 H (1.2-6.7) k/cumm Absolute Lymphocytes 0.33 L (1.2-3.4) k/cumm Absolute Monocytes (0.11-0.7) k/cumm APTT (21.0-31.4) sec D-Dimer (<500) ng/mlFEU Anion Gap 13.6 H (3-11) mmol/L BUN 37 H (7-18) mg/dL Creatinine 2.19 H (0.70-1.30) mg/dL Glucose 241 H (74-106) mg/dL Lactate 1.6 H (0.6-1.4) mmol/L Calcium (8.5-10.1) mg/dL Total Bilirubin 1.1 H (0.2-1.0) mg/dL Alkaline Phosphatase 155 H (46-116) U/L Troponin I (<0.06) ng/Ml C-Reactive Protein 14.26 H (0.0-0.3) mg/dL NT-Pro-B Natriuret Pep (<300) pg/mL Albumin (3.4-5.0) g/dL 02/12/20 02/12/20 02/12/20 Range/Units 16:45 18:00 22:00 WBC (4.4-10.8) k/cumm RBC (4.50-6.00) m/cumm Hgb (13.5-17.5) g/dL Hct (40.0-50.0) % RDW (11.8-14.1) % Plt Count (130-400) x1000/uL MPV (8.0-11.0) fL Absolute Neutrophils (1.2-6.7) k/cumm Absolute Lymphocytes (1.2-3.4) k/cumm Absolute Monocytes (0.11-0.7) k/cumm APTT (21.0-31.4) sec D-Dimer 3925 H (<500) ng/mlFEU Anion Gap (3-11) mmol/L BUN (7-18) mg/dL Creatinine (0.70-1.30) mg/dL Glucose (74-106) mg/dL Lactate (0.6-1.4) mmol/L Calcium (8.5-10.1) mg/dL Total Bilirubin (0.2-1.0) mg/dL Alkaline Phosphatase (46-116) U/L Troponin I 0.09 H* 0.08 H* (<0.06) ng/Ml C-Reactive Protein (0.0-0.3) mg/dL NT-Pro-B Natriuret Pep (<300) pg/mL Albumin (3.4-5.0) g/dL 02/13/20 02/13/20 02/13/20 Range/Units 02:00 06:00 06:00 WBC 14.04 H (4.4-10.8) k/cumm RBC 4.20 L (4.50-6.00) m/cumm Hgb 11.8 L (13.5-17.5) g/dL Hct 36.6 L (40.0-50.0) % RDW 21.3 H (11.8-14.1) % Plt Count 114 L (130-400) x1000/uL MPV 11.2 H (8.0-11.0) fL Absolute Neutrophils 11.79 H (1.2-6.7) k/cumm Absolute Lymphocytes 1.12 L (1.2-3.4) k/cumm Absolute Monocytes 1.12 H (0.11-0.7) k/cumm APTT > 155.0 H* D (21.0-31.4) sec D-Dimer 2155 H (<500) ng/mlFEU Anion Gap (3-11) mmol/L BUN 36 H (7-18) mg/dL Creatinine 1.86 H (0.70-1.30) mg/dL Glucose 181 H (74-106) mg/dL Lactate (0.6-1.4) mmol/L Calcium 8.4 L (8.5-10.1) mg/dL Total Bilirubin (0.2-1.0) mg/dL Alkaline Phosphatase (46-116) U/L Troponin I (<0.06) ng/Ml C-Reactive Protein (0.0-0.3) mg/dL NT-Pro-B Natriuret Pep 6772 H (<300) pg/mL Albumin 2.8 L (3.4-5.0) g/dL 02/13/20 Range/Units 09:25 WBC (4.4-10.8) k/cumm RBC (4.50-6.00) m/cumm Hgb (13.5-17.5) g/dL Hct (40.0-50.0) % RDW (11.8-14.1) % Plt Count (130-400) x1000/uL MPV (8.0-11.0) fL Absolute Neutrophils (1.2-6.7) k/cumm Absolute Lymphocytes (1.2-3.4) k/cumm Absolute Monocytes (0.11-0.7) k/cumm APTT 34.6 H D (21.0-31.4) sec D-Dimer (<500) ng/mlFEU Anion Gap (3-11) mmol/L BUN (7-18) mg/dL Creatinine (0.70-1.30) mg/dL Glucose (74-106) mg/dL Lactate (0.6-1.4) mmol/L Calcium (8.5-10.1) mg/dL Total Bilirubin (0.2-1.0) mg/dL Alkaline Phosphatase (46-116) U/L Troponin I (<0.06) ng/Ml C-Reactive Protein (0.0-0.3) mg/dL NT-Pro-B Natriuret Pep (<300) pg/mL Albumin (3.4-5.0) g/dL Vital Signs Temperature 37.8 C H 02/13/20 15:26 Temperature Source Tympanic 02/13/20 15:26 Pulse 70 02/13/20 15:26 Pulse Rhythm Irregular 02/13/20 15:26 Pulse 61 02/12/20 19:10 Respiratory Rate 22 02/13/20 16:17 Respiratory Effort 02/13/20 16:17 Respiratory Depth Shallow 02/13/20 16:17 Respiratory Pattern Normal 02/13/20 16:17 Blood Pressure 145/84 H 02/13/20 15:26 Blood Pressure Mean 79 02/12/20 19:00 Pulse Oximetry 100 02/13/20 15:26 Oxygen Delivery Method Room Air 02/13/20 15:26 Oxygen Flow Rate 0 02/13/20 15:26 Pain Level 0 02/13/20 15:26 Comment 02/13/20 09:54 Intake & Output 02/12/20 02/13/20 02/13/20 23:59 11:59 23:59 Intake Total 550 / 550 2016.509 / 2366.509 350 / 2366.509 Output Total 350 / 350 875 / 1625 750 / 1625 Balance 200 / 200 1141.509 / 741.509 -400 / 741.509 Weight 87.09 kg Intake: IV 550 / 550 1816.509 / 1816.509 Oral 200 / 550 350 / 550 Output: Urine 350 / 350 875 / 1625 750 / 1625 Other: Urine Color [place] Yellow Yellow Urine Appearance Clear Mucous Threads Clear Urine Odor None Comment urostomy, bud beefy red Urostomy output yellow urine with large white clumps. Voiding Methods Ileal Conduit (Right) Ileal Conduit (Right) Laboratory Results WBC 14.04 k/cumm (4.4-10.8) H 02/13/20 06:00 RBC 4.20 m/cumm (4.50-6.00) L 02/13/20 06:00 Hgb 11.8 g/dL (13.5-17.5) L 02/13/20 06:00 Hct 36.6 % (40.0-50.0) L 02/13/20 06:00 MCV 87.1 fL (80-95) 02/13/20 06:00 MCH 28.1 pg (27.0-33.0) 02/13/20 06:00 MCHC 32.2 g/dL (32.0-36.0) 02/13/20 06:00 RDW 21.3 % (11.8-14.1) H 02/13/20 06:00 Plt Count 114 x1000/uL (130-400) L 02/13/20 06:00 MPV 11.2 fL (8.0-11.0) H 02/13/20 06:00 Immature Gran % 0.0 % 02/13/20 06:00 Neutrophils % 77.0 02/13/20 06:00 Band Neutrophils % 7.0 % 02/13/20 06:00 Lymphocytes % 8.0 02/13/20 06:00 Monocytes % 8.0 02/13/20 06:00 Eosinophils % 0.0 02/13/20 06:00 Basophils % 0.0 02/13/20 06:00 Absolute Neutrophils 11.79 k/cumm (1.2-6.7) H 02/13/20 06:00 Absolute Lymphocytes 1.12 k/cumm (1.2-3.4) L 02/13/20 06:00 Absolute Monocytes 1.12 k/cumm (0.11-0.7) H 02/13/20 06:00 Absolute Eosinophils 0.00 k/cumm (0.0-0.7) 02/13/20 06:00 Absolute Basophils 0.00 k/cumm (0.0-0.2) 02/13/20 06:00 Differential Comment Manual differential 02/13/20 06:00 RBC Morphology See below 02/13/20 06:00 Polychromasia Present 02/13/20 06:00 Anisocytosis 2+ 02/13/20 06:00 APTT 34.6 sec (21.0-31.4) H D 02/13/20 09:25 D-Dimer 2155 ng/mlFEU (<500) H 02/13/20 02:00 Sodium 140 mmol/L (136-145) 02/13/20 06:00 Potassium 4.8 mmol/L (3.5-5.1) 02/13/20 06:00 Chloride 107 mmol/L (98-107) 02/13/20 06:00 Carbon Dioxide 23.6 mmol/L (21.0-32.0) 02/13/20 06:00 Anion Gap 9.4 mmol/L (3-11) 02/13/20 06:00 BUN 36 mg/dL (7-18) H 02/13/20 06:00 Creatinine 1.86 mg/dL (0.70-1.30) H 02/13/20 06:00 Estimated GFR/1.73 m2 35.04 (mL/min/1.73m2) 02/13/20 06:00 Glucose 181 mg/dL (74-106) H 02/13/20 06:00 Lactate 1.0 mmol/L (0.6-1.4) 02/13/20 06:00 Calcium 8.4 mg/dL (8.5-10.1) L 02/13/20 06:00 Magnesium 2.0 mg/dL (1.8-2.4) 02/13/20 06:00 Ferritin 99 ng/mL (26-388) 02/12/20 16:45 Total Bilirubin 0.6 mg/dL (0.2-1.0) 02/13/20 06:00 AST 35 U/L (15-37) 02/13/20 06:00 ALT 25 U/L (16-63) 02/13/20 06:00 Alkaline Phosphatase 116 U/L (46-116) 02/13/20 06:00 Lactate Dehydrogenase 176 U/L (85-227) 02/12/20 16:45 Creatine Kinase 292 U/L (39-308) 02/13/20 06:00 Troponin I 0.05 ng/Ml (<0.06) 02/13/20 06:00 C-Reactive Protein 14.26 mg/dL (0.0-0.3) H 02/12/20 16:45 NT-Pro-B Natriuret Pep 6772 pg/mL (<300) H 02/13/20 06:00 Total Protein 6.9 g/dL (6.4-8.2) 02/13/20 06:00 Albumin 2.8 g/dL (3.4-5.0) L 02/13/20 06:00 Procalcitonin 31.6 ng/mL 02/12/20 16:45 TSH 1.53 uIU/mL (0.36-3.74) 02/13/20 06:00
[2020-02-13] MEDS: Furosemide 20 MG/2 ML VIAL IVP (16:45)
[2020-02-13 18:03] LABS: PTT Activated 101.3 sec (21.0-31.4)
[2020-02-13] MEDS: Normal Saline Flush 10 ML SYR IVP (23:37)
[2020-02-14 01:07] LABS: Bilirubin Negative (Negative); Blood Small (Negative); Clarity Clear (Clear); Glucose 100 mg/dL (Negative); Ketones Negative (Negative); Leukocyte Esterase Negative (Negative); Nitrite Negative (Negative); Urobilinogen 0.2 EU/dL (Up TO 0.2)
[2020-02-14 01:17] LABS: Epithelial Cells Negative HPF (Negative); RBC 0-2 HPF (0-2); WBC 0-2 HPF (0-5)
[2020-02-14 01:18] LABS: Bacteria Rare HPF (Negative); C & S Indicated? C&S Done As Ordered; Casts 0-2 Hyaline LPF (Negative); Crystals Negative HPF (Negative); Mucus Negative (Negative); Other Cells Few Renal (Negative)
[2020-02-14 02:03] LABS: PTT Activated 89.7 sec (21.0-31.4)
[2020-02-14 04:00] VITALS: BP 132/72; PULSE 62; RESP 18; TEMP 36.8; O2SAT 95
[2020-02-14 07:35] LABS: Abs Immature Grans 0.03 k/cumm (0.0-0.09); Absolute Basophil Count 0.02 k/cumm (0.0-0.2); Absolute Eosinophil Count 0.03 k/cumm (0.0-0.7); Absolute Lymphocyte Count 0.82 k/cumm (1.2-3.4); Absolute Monocyte Count 1.31 k/cumm (0.11-0.7); Basophils % 0.2; Eosinophils % 0.3; HGB 11.9 g/dL (13.5-17.5); Immature Grans % 0.3 %; Lymphocytes % 7.1; Mean Corp. HGB Concentration 32.2 g/dL (32.0-36.0); Mean Corpuscular Hemoglobin 27.7 pg (27.0-33.0); Mean Corpuscular Volume 86.2 fL (80-95); Mean Platelet Volume 12.4 fL (8.0-11.0); Monocytes % 11.3; Neutrophils % 80.8; Platelet Count 107 x1000/uL (130-400); RBC 4.29 m/cumm (4.50-6.00); RBC Distribution Width 21.1 % (11.8-14.1); White Blood Cell Count 11.55 k/cumm (4.4-10.8)
[2020-02-14 07:38] LABS: Absolute Neutrophil Count 9.33 k/cumm (1.2-6.7)
[2020-02-14 07:49] VITALS: BP 117/73; PULSE 68; RESP 18; TEMP 36.2; O2SAT 96
[2020-02-14 07:54] LABS: ALT 26 U/L (16-63); AST 26 U/L (15-37); Albumin 2.9 g/dL (3.4-5.0); Alkaline Phosphatase 119 U/L (46-116); Anion Gap 12.6 mmol/L (3-11); BUN 36 mg/dL (7-18); Bilirubin, Total 0.7 mg/dL (0.2-1.0); CO2 22.4 mmol/L (21.0-32.0); CREATININE 1.79 mg/dL (0.70-1.30); Calcium 8.9 mg/dL (8.5-10.1); Chloride 102 mmol/L (98-107); Estimated GFR 36.63 (mL/min/1.73m2); Glucose 210 mg/dL (74-106); Sodium 137 mmol/L (136-145); Total Protein 7.2 g/dL (6.4-8.2)
[2020-02-14 08:06] LABS: Potassium 3.8 mmol/L (3.5-5.1)
[2020-02-14] MEDS: Ipratropium/Albuterol 4 GM 120 PUFF INH IH ×4 (08:19→20:53)
[2020-02-14] MEDS: Insulin Aspart 300 UNITS/3 ML PEN SC ×4 (08:28→20:59)
[2020-02-14] MEDS: Magnesium Oxide 400 MG TAB PO (08:29)
[2020-02-14] MEDS: Ascorbic Acid 500 MG TAB PO (08:29)
[2020-02-14] MEDS: Simvastatin 20 MG TAB PO (08:30)
[2020-02-14] MEDS: Sodium Bicarbonate 650 MG TAB PO (08:30)
[2020-02-14] MEDS: Pantoprazole 20 MG TABCR PO (08:30)
[2020-02-14] MEDS: Aspirin 81 MG CHEW PO (08:30)
[2020-02-14] MEDS: Azithromycin 250 MG TAB PO (08:33)
[2020-02-14] MEDS: Latanoprost 0.005% 2.5 ML BTL OP (08:42)
[2020-02-14 09:19] LABS: PTT Activated 51.9 sec (21.0-31.4)
--- NOTE | 2020-02-14 09:24 | CMPROGNOTE_ITS ---
- If Service Date Differs Date of service: 02/14/20 Time of Service: 09:24 Care Management Progress Note S/O: Abdullahi has been ruled out for COVID - 19 he is now admitted to the medical surgical unit. He has positive blood cultures and receiving multiple IV abx awaiting sensitivities. He continues on a Heparin drip while ruling out a PE by VQ scan he also has a echo pending. He has a palliative care consult ordered and his spouse has been updated today by CM. (Yolie) Spouse will plan to p articipate for palliative care consult over the phone. and Palliative have been notified. A: Asif is a 79 year old male with multiple comorbidity's admitted to the RICU with Resp symptoms, COVID - 19 rule out and HCAP now with positive blood cultures. P: Asif remains inpatient today, he will be discharged when medically ready. Outpatient services include resumption of home health nursing and PT, palliative care and oncology. He will be transported home via private car with spouse when discharged. CM to continue to assess for ongoing discharge needs.
[2020-02-14 11:45] VITALS: BP 109/68; PULSE 69; RESP 18; TEMP 36.8; O2SAT 95
[2020-02-14] MEDS: CEFEPIME 1 GM in Normal Saline 50 ML IVPB ×2 (11:50→23:11)
--- NOTE | 2020-02-14 12:46 | PGE_ITS ---
Date of Service Date of service: 02/14/20 Time of Service: 12:46 Assessment and Plan Assessment and plan (1) Sepsis: Start date: 02/14/20 Start time: 12:49 Status: Resolved Assessment and plan: Due to HCAP, present on admission, as well as GNR bacteremia. COVID r/o negative, d/c azithromycin. Blood cultures with GNB. d/c vanco, continue cefepime, no sensitivities at this time. Repeat blood cultures pending. Repeat procalcitonin for tomorrow, last one 31.6 on 02/11. Echo for Sunday (2) Gram-negative bacteremia: Start date: 02/14/20 Start time: 12:53 Status: Acute Assessment and plan: As above (3) HCAP (healthcare-associated pneumonia): Start date: 02/14/20 Start time: 12:53 Status: Acute Assessment and plan: Present on admission. Continue empiric cefepime. (4) Suspected COVID-19 virus infection: Start date: 02/14/20 Start time: 12:54 Status: Ruled-out Assessment and plan: negative, transferred out RICU m/s unit (5) Adenocarcinoma of rectosigmoid junction: Start date: 02/14/20 Start time: 12:54 Status: Chronic Assessment and plan: On chemo. Consult palliative care (6) Myasthenia gravis: Start date: 02/14/20 Start time: 12:54 Status: Chronic Assessment and plan: continue pyridostigmine (7) Diabetes mellitus: Start date: 02/14/20 Start time: 12:54 Status: Chronic Assessment and plan: Continue SSI Qualifiers: Diabetes mellitus type: type 2 Diabetes mellitus keno terminal operator insulin use: without keno terminal operator use Diabetes mellitus complication status: with kidney complications Diabetes mellitus complication detail: with chronic kidney disease (8) COPD (chronic obstructive pulmonary disease): Start date: 02/14/20 Start time: 12:54 Status: Chronic Assessment and plan: Not in acute exacerbation. Continue Combivent and prn albuterol MDI. Not requiring O2 today. Qualifiers: COPD type: COPD with acute lower respiratory infection Qualified Code(s): J44.0 - Chronic obstructive pulmonary disease with (acute) lower respiratory infection (9) Chronic kidney disease: Start date: 02/14/20 Start time: 12:55 Status: Chronic Assessment and plan: Mild ANNIKA resolved with IV hydration, continue to monitor renal function Qualifiers: Chronic kidney disease stage: stage 3 (moderate) Qualified Code(s): N18.3 - Chronic kidney disease, stage 3 (moderate) (10) Hypertrophic cardiomyopathy: Start date: 02/14/20 Start time: 12:55 Status: Acute Assessment and plan: Echo for Sunday. Not needing diuresis at this time. (11) Elevated d-dimer: Start date: 02/14/20 Start time: 12:56 Status: Acute Assessment and plan: COVID 19 negative. D-Dimer likely elevated secondary to ca. Will continue heparin gtt at this point as he is at higher risk due to hypercoaguability and vq scan on Sunday as he has already started to be r/o. Not requiring oxygen and no symptoms of DVT. (12) DVT prophylaxis: Start date: 02/14/20 Start time: 13:00 Status: Acute Assessment and plan: ON therapeutic heparin gtt. (13) Discharge planning issues: Start date: 02/14/20 Start time: 13:00 Status: Acute Assessment and plan: Full code Palliative care consulted. Above case discussed with Dr. Perez who is in agreement with treatment. Subjective Subjective Patient reports: feels better Interval history since last seen: Feeling better today, was hoping to go home, teary eyed when discussing plan. Scheduled for echo, vq scan and repeat blood cultures pending. Likely will not go home before Sunday if dischargeable. Patient upset but agreeable. Denies CP, SOB, N/V/D. Denies Cough. Exam Narrative Exam Narrative: General: Very pleasant elderly male, A&Ox3, sitting comfortably in a chair on room air, no respiratory distress noted HEENT: EOMI, MMM Heart: RRR with an occasional extra beat Lungs: crackles at R base Abdomen: soft, nontender Extremities: no edema BLE's, feet are cold Objective Objective Clinical Data: Abnormal lab results 02/13/20 02/14/20 02/14/20 Range/Units 16:30 00:50 01:30 WBC (4.4-10.8) k/cumm RBC (4.50-6.00) m/cumm Hgb (13.5-17.5) g/dL Hct (40.0-50.0) % RDW (11.8-14.1) % Plt Count (130-400) x1000/uL MPV (8.0-11.0) fL Absolute Neutrophils (1.2-6.7) k/cumm Absolute Lymphocytes (1.2-3.4) k/cumm Absolute Monocytes (0.11-0.7) k/cumm APTT 101.3 H* D 89.7 H* (21.0-31.4) sec Anion Gap (3-11) mmol/L BUN (7-18) mg/dL Creatinine (0.70-1.30) mg/dL Glucose (74-106) mg/dL Conjugated Bilirubin (0.00-0.20) mg/dL Alkaline Phosphatase (46-116) U/L C-Reactive Protein (0.0-0.3) mg/dL Albumin (3.4-5.0) g/dL Urine Protein 30 H (Negative) mg/dL Urine Blood Small H (Negative) 02/14/20 02/14/20 02/14/20 Range/Units 07:10 07:10 08:58 WBC 11.55 H (4.4-10.8) k/cumm RBC 4.29 L (4.50-6.00) m/cumm Hgb 11.9 L (13.5-17.5) g/dL Hct 37.0 L (40.0-50.0) % RDW 21.1 H (11.8-14.1) % Plt Count 107 L (130-400) x1000/uL MPV 12.4 H (8.0-11.0) fL Absolute Neutrophils 9.33 H (1.2-6.7) k/cumm Absolute Lymphocytes 0.82 L (1.2-3.4) k/cumm Absolute Monocytes 1.31 H (0.11-0.7) k/cumm APTT 51.9 H D (21.0-31.4) sec Anion Gap 12.6 H (3-11) mmol/L BUN 36 H (7-18) mg/dL Creatinine 1.79 H (0.70-1.30) mg/dL Glucose 210 H (74-106) mg/dL Conjugated Bilirubin 0.30 H (0.00-0.20) mg/dL Alkaline Phosphatase 119 H (46-116) U/L C-Reactive Protein 22.90 H (0.0-0.3) mg/dL Albumin 2.9 L (3.4-5.0) g/dL Urine Protein (Negative) mg/dL Urine Blood (Negative) Vital Signs Temperature 36.8 C 02/14/20 11:45 Temperature Source Temporal Artery Scan 02/14/20 11:45 Pulse 69 02/14/20 11:45 Pulse Rhythm Regular 02/14/20 09:22 Pulse 61 02/12/20 19:10 Respiratory Rate 18 02/14/20 11:45 Respiratory Effort Non-Labored 02/14/20 09:22 Respiratory Depth Normal 02/14/20 09:22 Respiratory Pattern Normal 02/14/20 09:22 Blood Pressure 109/68 02/14/20 11:45 Blood Pressure Mean 79 02/12/20 19:00 Pulse Oximetry 95 02/14/20 11:45 Oxygen Delivery Method Room Air 02/14/20 11:45 Oxygen Flow Rate 0 02/14/20 11:45 Pain Level 0 02/14/20 11:45 Comment 02/13/20 09:54 Intake & Output 02/13/20 02/14/20 02/14/20 23:59 11:59 23:59 Intake Total 537.983 / 2554.492 385.458 / 385.458 Output Total 2425 / 3300 950 / 950 Balance -1887.017 / -745.508 -564.542 / -564.542 Weight 86.9 kg Intake: IV 187.983 / 2004.492 145.458 / 145.458 Oral 350 / 550 240 / 240 Output: Urine 2425 / 3300 950 / 950 Other: Urine Color [place] Yellow Yellow Urine Appearance Clear Clear Urine Odor None Normal Comment urostomy Sample sent to lab Voiding Methods Ileal Conduit (Right) Ileal Conduit (Right) Laboratory Results WBC 11.55 k/cumm (4.4-10.8) H 02/14/20 07:10 RBC 4.29 m/cumm (4.50-6.00) L 02/14/20 07:10 Hgb 11.9 g/dL (13.5-17.5) L 02/14/20 07:10 Hct 37.0 % (40.0-50.0) L 02/14/20 07:10 MCV 86.2 fL (80-95) 02/14/20 07:10 MCH 27.7 pg (27.0-33.0) 02/14/20 07:10 MCHC 32.2 g/dL (32.0-36.0) 02/14/20 07:10 RDW 21.1 % (11.8-14.1) H 02/14/20 07:10 Plt Count 107 x1000/uL (130-400) L 02/14/20 07:10 MPV 12.4 fL (8.0-11.0) H 02/14/20 07:10 Immature Gran % 0.3 % 02/14/20 07:10 Neutrophils % 80.8 02/14/20 07:10 Band Neutrophils % 7.0 % 02/13/20 06:00 Lymphocytes % 7.1 02/14/20 07:10 Monocytes % 11.3 02/14/20 07:10 Eosinophils % 0.3 02/14/20 07:10 Basophils % 0.2 02/14/20 07:10 Absolute Neutrophils 9.33 k/cumm (1.2-6.7) H 02/14/20 07:10 Absolute Lymphocytes 0.82 k/cumm (1.2-3.4) L 02/14/20 07:10 Absolute Monocytes 1.31 k/cumm (0.11-0.7) H 02/14/20 07:10 Absolute Eosinophils 0.03 k/cumm (0.0-0.7) 02/14/20 07:10 Absolute Basophils 0.02 k/cumm (0.0-0.2) 02/14/20 07:10 Differential Comment Manual differential 02/13/20 06:00 RBC Morphology See below 02/13/20 06:00 Polychromasia Present 02/13/20 06:00 Anisocytosis 2+ 02/13/20 06:00 APTT 51.9 sec (21.0-31.4) H D 02/14/20 08:58 D-Dimer 2155 ng/mlFEU (<500) H 02/13/20 02:00 Sodium 137 mmol/L (136-145) 02/14/20 07:10 Potassium 3.8 mmol/L (3.5-5.1) D 02/14/20 07:10 Chloride 102 mmol/L (98-107) 02/14/20 07:10 Carbon Dioxide 22.4 mmol/L (21.0-32.0) 02/14/20 07:10 Anion Gap 12.6 mmol/L (3-11) H 02/14/20 07:10 BUN 36 mg/dL (7-18) H 02/14/20 07:10 Creatinine 1.79 mg/dL (0.70-1.30) H 02/14/20 07:10 Estimated GFR/1.73 m2 36.63 (mL/min/1.73m2) 02/14/20 07:10 Glucose 210 mg/dL (74-106) H 02/14/20 07:10 Lactate 1.0 mmol/L (0.6-1.4) 02/13/20 06:00 Calcium 8.9 mg/dL (8.5-10.1) 02/14/20 07:10 Magnesium 2.0 mg/dL (1.8-2.4) 02/14/20 07:10 Ferritin 99 ng/mL (26-388) 02/12/20 16:45 Total Bilirubin 0.7 mg/dL (0.2-1.0) 02/14/20 07:10 Conjugated Bilirubin 0.30 mg/dL (0.00-0.20) H 02/14/20 07:10 AST 26 U/L (15-37) 02/14/20 07:10 ALT 26 U/L (16-63) 02/14/20 07:10 Alkaline Phosphatase 119 U/L (46-116) H 02/14/20 07:10 Lactate Dehydrogenase 176 U/L (85-227) 02/12/20 16:45 Creatine Kinase 292 U/L (39-308) 02/13/20 06:00 Troponin I 0.05 ng/Ml (<0.06) 02/13/20 06:00 C-Reactive Protein 22.90 mg/dL (0.0-0.3) H 02/14/20 07:10 NT-Pro-B Natriuret Pep 6772 pg/mL (<300) H 02/13/20 06:00 Total Protein 7.2 g/dL (6.4-8.2) 02/14/20 07:10 Albumin 2.9 g/dL (3.4-5.0) L 02/14/20 07:10 Procalcitonin 31.6 ng/mL 02/12/20 16:45 TSH 1.53 uIU/mL (0.36-3.74) 02/13/20 06:00 Urine Color Yellow (Yellow) 02/14/20 00:50 Urine Clarity Clear (Clear) 02/14/20 00:50 Urine pH 7.0 (5-8) 02/14/20 00:50 Ur Specific [place] 1.020 (1.005-1.025) 02/14/20 00:50 Urine Protein 30 mg/dL (Negative) H 02/14/20 00:50 Urine Ketones Negative mg/dL (Negative) 02/14/20 00:50 Urine Blood Small (Negative) H 02/14/20 00:50 Urine Nitrite Negative (Negative) 02/14/20 00:50 Urine Bilirubin Negative (Negative) 02/14/20 00:50 Urine Urobilinogen 0.2 EU/dL (Up TO 0.2) 02/14/20 00:50 Ur Leukocyte Esterase Negative (Negative) 02/14/20 00:50 Urine RBC 0-2 HPF (0-2) 02/14/20 00:50 Urine WBC 0-2 HPF (0-5) 02/14/20 00:50 Ur Epithelial Cells Negative HPF (Negative) 02/14/20 00:50 Urine Crystals Negative HPF (Negative) 02/14/20 00:50 Urine Bacteria Rare HPF (Negative) 02/14/20 00:50 Urine Casts 0-2 hyaline LPF (Negative) 02/14/20 00:50 Urine Mucus Negative (Negative) 02/14/20 00:50 Urine Other Few renal (Negative) 02/14/20 00:50 Ur Culture Indicated? C&s done as ordered 02/14/20 00:50 Urine Glucose 100 mg/dL (Negative) 02/14/20 00:50
[2020-02-14 16:01] VITALS: BP 118/80; PULSE 75; RESP 18; TEMP 37.1; O2SAT 98
[2020-02-14 19:13] VITALS: BP 121/68; PULSE 60; RESP 17; TEMP 36.6; O2SAT 98
--- NOTE | 2020-02-14 19:42 | W.PALLCONSUL ---
Date of service: 02/14/20 History of Present Illness History of Present Illness Chief Complaint: goals of care conversation; h/o bladder and colon cancers Narrative: I was asked to see Abdullahi Maddox to discuss his goals of care and CODE STATUS. He was recently diagnosed with colon cancer (on town meeting day). He has a colostomy in his left lower quadrant. His has a neobladder in his right lower quadrant. He was admitted with probable pneumonia. He's asking when he can go home. His CODE STATUS was listed as FULL; when I started exploring his goals of care and whether he understood what full code entailed, he stopped me to say that he had already done the paperwork; he has been DNR.DNI since his bladder cancer was diagnosed 10 years ago. He was surprised to hear that he was listed as FULL CODE. He said we ought to have the papers stating otherwise; he said no one talked to him about it this admission. Consults Consult date: 02/14/20 Requesting physician: Jazmyn Polk Assessment and Plan Assessment and plan (1) POLST (Physician Orders for Life-Sustaining Treatment): Status: Chronic Assessment and plan: Has had an Advance Directive for almost 10 years stating his desire to be DNR/DNI. Needs a COLST form done to have at home. Wanted me to change his code status directly after our visit, which was done. (2) Hypertrophic cardiomyopathy: Status: Acute Assessment and plan: Contributing to his CARSON when he tries to be active. (3) COPD (chronic obstructive pulmonary disease): Status: Chronic Assessment and plan: Smoked for years, as did his . Not on oxygen at home. Doesn't qualify. Encouraged activity. Qualifiers: COPD type: COPD with acute lower respiratory infection Qualified Code(s): J44.0 - Chronic obstructive pulmonary disease with (acute) lower respiratory infection (4) HCAP (healthcare-associated pneumonia): Status: Acute Assessment and plan: No active signs of infection at time I was seeing him: normal temp, no increased WOB, no cough. Wanting to go home as soon as the hospitalist team will let him. 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 He's a bit worried about there being a hernia at the base of the colostomy as it is more elevated than his neobladder. Advised he run his concerns by his surgical team. Doesn't look obvious to me. Bag functioning well. (6) Colostomy in place: Status: Chronic (7) Palliative care patient: Status: Chronic Assessment and plan: Will continue to see Abdullahi once he released home. Review of Systems Constitutional Constitutional: Reports fatigue and Reports weakness Eyes Eyes: Reports requires corrective lenses ENT Ears, Nose, Mouth, and Throat: Reports abnormal hearing, Reports dry mouth, Reports hearing loss and Reports other (has dentures, ill-fitting) Cardiovascular Cardiovascular: Reports dyspnea on exertion Respiratory Respiratory: Reports cough (improved since admission; none during my visit) and Reports dyspnea on exertion Gastrointestinal Gastrointestinal: Reports other (formed stool, no diarrhea, no blood in stool, worried about elevated stoma) Genitourinary Genitourinary: Reports other (neobladder draining clear urine, not cloudy) Musculoskeletal Musculoskeletal: Reports muscle weakness Integumentary/Breasts Skin/Breast: Reports dry skin Neurologic Neurologic: Reports abnormal hearing and Reports weakness Psychiatric Psychiatric: Reports difficulty concentrating Endocrine Endocrine: Reports fatigue Hematologic/Lymphatic Hematologic/Lymphatic: Reports easy bruising [facility] Medical History (Updated 02/16/20 @ 20:06 by Ling Woodard MD) Abdominal aneurysm without mention of rupture (Acute) Allergic rhinitis (Acute) Atrial fibrillation (Chronic) Chronic kidney disease (Chronic) Colostomy in place (Chronic) COPD (chronic obstructive pulmonary disease) (Chronic) Diabetes mellitus (Chronic) DNI (do not intubate) (Acute) DNR (do not resuscitate) (Acute) GERD (gastroesophageal reflux disease) (Chronic) Hearing loss (Acute) Heart murmur (Acute) Hematochezia (Acute) History of bladder cancer (Acute) 2010; 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 Myasthenia gravis (Chronic 10/16/16) Pacemaker (Acute) 2/2 heart block Palliative care patient (Chronic) POLST (Physician Orders for Life-Sustaining Treatment) (Chronic) Shoulder fracture, right (Acute) Tobacco abuse (Acute) Surgical History (Updated 02/13/20 @ 00:54 by Stevenson Cannon) H/O hernia repair (Chronic) H/O prostatectomy (Chronic) Cystoprostatectomy with bilateral lymphadenectomy with ileal loop urinary diversion 2010. H/O total cystectomy (Acute) History of low anterior resection of rectum (Acute 12/30/19) [facility] [place]. Zafar Carey S/P placement of cardiac pacemaker (Acute) 07/2018 S/P tonsillectomy and adenoidectomy (Acute) Family History Mother Glaucoma Brother Patient's brother is Sister Patient's sister is Social History (Updated 02/16/20 @ 19:59 by Ling Woodard MD) Smoking/Tobacco Use Status: Former Tobacco Use Tobacco: How many years used: 40 Alcohol Intake: current Alcohol Intake frequency: a few times a week Drug use: Never Substance use type: does not use Caregiver/Support person: Yes Household members: spouse Housing: house Communication Needs: Hard of Hearing and Corrective Lenses Education Level: high school Do you need help understanding health information?: Often current occupation: Retired maintenance What is your relationship status?: How often do you talk on the phone with friends or family?: once per week How often do you get together with friends or relatives?: never Panel score (0-1 are the most socially isolated patients): 1 What type of physical activity do you participate in: walking, irregular exercise and sedentary lifestyle Frequency: 1-2 times per week Working smoke detector in home: Yes Fire extinguisher in home: Yes Do you feel safe at home: Yes Do you feel safe in your relationship?: Yes Additional Social history: to Yolie x >50 years. Lives in [place], [place]. Happy overall. Exam Narrative Exam Narrative: General: Very pleasant elderly male, A&Ox3, sitting comfortably in a chair on room air, no respiratory distress noted HEENT: EOMI, MMM, has left hearing aid in place, still struggling to hear; dentures in place, ill-fitting Heart: RRR with an occasional extra beat, no obvious murmur Lungs: crackles at R base but no increased work of breathing, lung sounds distant otherwise Abdomen: soft, nontender With both neobladder and colostomy in place; clear pale urine draining from neobladder; formed brown stool in bag. Extremities: no edema BLE's, feet are cold Skin: some bruising Psych: not anxious or depressed, wants to go home Neuro: no obvious cognitive deficits Eyes: wearing glasses, anicteric Results Last Vital Signs Temp 98.6 F 02/16/20 16:08 Pulse 60 02/16/20 16:08 Resp 18 02/16/20 16:08 BP 176/108 H 02/16/20 16:08 Pulse Ox 94 L 02/16/20 16:08 Labs Result diagrams: 02/16/20 06:03 02/16/20 06:03 Labs: Laboratory Results - last 24 hr 02/12/20 02/12/20 02/13/20 22:00 22:00 06:00 WBC RBC Hgb Hct MCV MCH MCHC RDW Plt Count MPV Immature Gran % Neutrophils % Lymphocytes % Monocytes % Eosinophils % Basophils % Absolute Neutrophils Absolute Lymphocytes Absolute Monocytes Absolute Eosinophils Absolute Basophils APTT Sodium Potassium Chloride Carbon Dioxide Anion Gap BUN Creatinine Estimated GFR/1.73 m2 Glucose Calcium 25-OH Vitamin D Total 29.7 L Coronavirus (PCR) Negative Ur Strep pneumoniae Ag Negative 02/16/20 02/16/20 02/16/20 06:03 06:03 06:03 WBC 6.97 RBC 4.47 L Hgb 12.4 L Hct 38.1 L MCV 85.2 MCH 27.7 MCHC 32.5 RDW 20.7 H Plt Count 166 MPV 10.9 Immature Gran % 0.3 Neutrophils % 70.7 Lymphocytes % 14.2 Monocytes % 12.8 Eosinophils % 1.4 Basophils % 0.6 Absolute Neutrophils 4.93 Absolute Lymphocytes 0.99 L Absolute Monocytes 0.89 H Absolute Eosinophils 0.10 Absolute Basophils 0.04 APTT 42.6 H Sodium 140 Potassium 4.0 Chloride 107 Carbon Dioxide 23.2 Anion Gap 9.8 BUN 35 H Creatinine 1.57 H Estimated GFR/1.73 m2 42.61 Glucose 151 H Calcium 8.8 25-OH Vitamin D Total Coronavirus (PCR) Ur Strep pneumoniae Ag
[2020-02-14 23:29] VITALS: BP 153/82; PULSE 69; RESP 20; TEMP 37.1; O2SAT 98
[2020-02-15] MEDS: Normal Saline Flush 10 ML SYR IVP ×2 (01:09→11:43)
[2020-02-15 03:48] VITALS: BP 153/85; PULSE 65; RESP 18; TEMP 37; O2SAT 95
[2020-02-15 07:16] LABS: Abs Immature Grans 0.02 k/cumm (0.0-0.09); Absolute Basophil Count 0.02 k/cumm (0.0-0.2); Absolute Eosinophil Count 0.05 k/cumm (0.0-0.7); Absolute Lymphocyte Count 0.85 k/cumm (1.2-3.4); Absolute Monocyte Count 1.04 k/cumm (0.11-0.7); Basophils % 0.2; Eosinophils % 0.6; HCT 37.6 % (40.0-50.0); HGB 12.1 g/dL (13.5-17.5); Immature Grans % 0.2 %; Lymphocytes % 10.5; Mean Corp. HGB Concentration 32.2 g/dL (32.0-36.0); Mean Corpuscular Hemoglobin 27.6 pg (27.0-33.0); Mean Corpuscular Volume 85.6 fL (80-95); Mean Platelet Volume 11.3 fL (8.0-11.0); Monocytes % 12.9; Neutrophils % 75.6; Platelet Count 129 x1000/uL (130-400); RBC 4.39 m/cumm (4.50-6.00); White Blood Cell Count 8.06 k/cumm (4.4-10.8)
[2020-02-15 07:17] LABS: Absolute Neutrophil Count 6.09 k/cumm (1.2-6.7)
[2020-02-15 07:32] LABS: PTT Activated 41.5 sec (21.0-31.4)
[2020-02-15 07:33] LABS: Anion Gap 9.6 mmol/L (3-11); BUN 38 mg/dL (7-18); CO2 23.4 mmol/L (21.0-32.0); CREATININE 1.67 mg/dL (0.70-1.30); Calcium 8.8 mg/dL (8.5-10.1); Chloride 107 mmol/L (98-107); Estimated GFR 39.68 (mL/min/1.73m2); Glucose 183 mg/dL (74-106); Magnesium 1.9 mg/dL (1.8-2.4); Potassium 3.9 mmol/L (3.5-5.1); Sodium 140 mmol/L (136-145)
[2020-02-15] MEDS: Insulin Aspart 300 UNITS/3 ML PEN SC ×4 (07:54→21:49)
[2020-02-15] MEDS: Aspirin 81 MG CHEW PO (07:54)
[2020-02-15] MEDS: Magnesium Oxide 400 MG TAB PO (07:54)
[2020-02-15] MEDS: Latanoprost 0.005% 2.5 ML BTL OP (07:55)
[2020-02-15] MEDS: Simvastatin 20 MG TAB PO (07:55)
[2020-02-15] MEDS: Sodium Bicarbonate 650 MG TAB PO (07:55)
[2020-02-15] MEDS: Pantoprazole 20 MG TABCR PO (07:55)
[2020-02-15] MEDS: Ascorbic Acid 500 MG TAB PO (07:55)
[2020-02-15] MEDS: Ipratropium/Albuterol 4 GM 120 PUFF INH IH ×4 (07:58→19:49)
[2020-02-15 11:20] VITALS: BP 149/88; PULSE 75; RESP 17; TEMP 37.1; O2SAT 98
[2020-02-15] MEDS: CEFEPIME 1 GM in Normal Saline 50 ML IVPB ×2 (11:42→23:52)
--- NOTE | 2020-02-15 11:45 | PDOC.CMPRO ---
- If Service Date Differs Date of service: 02/15/20 Time of Service: 11:45 Care Management Progress Note S/O: Abdullahi has been ruled out for COVID - 19 he is now admitted to the medical surgical unit. He continues on a Heparin drip while ruling out a PE by VQ scan he also has a echo pending for Sunday. Asif remains on IV abx and his second blood cultures have no growth in 24 hours. Asif wants to return home as soon as possible, he states he does not like being in the hospital and wants to be with his spouse. CM did provide update to his today she is bringing in his medications from home and dropping off a hearing aid battery. He has a palliative care consult ordered and his spouse has been updated today by CM. (Yolie) Spouse will plan to participate for palliative care consult over the phone. and Palliative have been notified. A: Asif is a 79 year old male with multiple comorbidity's admitted to the RICU with Resp symptoms, COVID - 19 rule out and HCAP, positive blood cultures, receiving IV abx for bacteria infection. P: Asif remains inpatient today, he will be discharged when medically ready. Outpatient services include resumption of home health nursing and PT, palliative care and oncology. He will be transported home via private car with spouse when discharged. CM to continue to assess for ongoing discharge needs.
--- NOTE | 2020-02-15 13:40 | W.PM.PROGNOT ---
Date of Service Date of service: 02/15/20 Time of Service: 13:40 Assessment and Plan Assessment and plan (1) Gram-negative bacteremia: Start date: 02/15/20 Start time: 13:43 Status: Acute Assessment and plan: Present on admission, source pneumonia. 1st set bc growing e. coli. Narrowed regimen to cefepime at this time. awaiting sensitivities. Procalcitonin down to 18, no cough, sputum white. Not requiring oxygen. Continue antbiotic regimen, mucinex for cough, ICS. Second set bc NGTD Echo for tomorrow. (2) Sepsis: Start date: 02/15/20 Start time: 13:43 Status: Resolved Assessment and plan: resolved. (3) HCAP (healthcare-associated pneumonia): Start date: 02/15/20 Start time: 13:45 Status: Acute Assessment and plan: Present on admission. Continue empiric cefepime. (4) Adenocarcinoma of rectosigmoid junction: Start date: 02/15/20 Start time: 13:45 Status: Chronic Assessment and plan: On chemo. Palliative care changed to DNR/DNI (5) Myasthenia gravis: Start date: 02/15/20 Start time: 13:45 Status: Chronic Assessment and plan: continue pyridostigmine (6) Diabetes mellitus: Start date: 02/15/20 Start time: 13:45 Status: Chronic Assessment and plan: Continue SSI Qualifiers: Diabetes mellitus type: type 2 Diabetes mellitus usp insulin use: without usp use Diabetes mellitus complication status: with kidney complications Diabetes mellitus complication detail: with chronic kidney disease (7) COPD (chronic obstructive pulmonary disease): Start date: 02/15/20 Start time: 13:45 Status: Chronic Assessment and plan: Not in acute exacerbation. Continue Combivent and prn albuterol MDI. Not requiring O2 today. Qualifiers: COPD type: COPD with acute lower respiratory infection Qualified Code(s): J44.0 - Chronic obstructive pulmonary disease with (acute) lower respiratory infection (8) Chronic kidney disease: Start date: 02/15/20 Start time: 13:46 Status: Chronic Assessment and plan: resolved patient at baseline creatinine. continue to monitor renal function Qualifiers: Chronic kidney disease stage: stage 3 (moderate) Qualified Code(s): N18.3 - Chronic kidney disease, stage 3 (moderate) (9) Hypertrophic cardiomyopathy: Start date: 02/15/20 Start time: 13:46 Status: Acute Assessment and plan: Echo for Sunday. Not needing diuresis at this time. (10) Elevated d-dimer: Start date: 02/15/20 Start time: 13:46 Status: Acute Assessment and plan: COVID 19 negative. D-Dimer likely elevated secondary to ca. Will continue heparin gtt at this point as he is at higher risk due to hypercoaguability, vq scan for tomorrow. Not requiring oxygen and no symptoms of DVT. (11) DVT prophylaxis: Start date: 02/15/20 Start time: 13:47 Status: Acute Assessment and plan: ON therapeutic heparin gtt. (12) Discharge planning issues: Start date: 02/15/20 Start time: 13:47 Status: Acute Assessment and plan: DNR/DNI, palliative patient Above case discussed with Dr. Perez who is in agreement with treatment. Subjective Subjective Patient reports: no new complaints Interval history since last seen: Doing well. OOB to chair. Denies CP, SOB, NVD Exam Narrative Exam Narrative: General: Very pleasant elderly male, A&Ox3, sitting comfortably in a chair on room air, no respiratory distress noted HEENT: EOMI, MMM Heart: RRR with an occasional extra beat Lungs: LSC, no rhonchi, rales or wheezing Abdomen: soft, nontender, bsx4, ilieuconduit in place, colostomy in place stomas pink, Extremities: no edema BLE's, feet are cold Objective Objective Clinical Data: Abnormal lab results 02/15/20 02/15/20 02/15/20 Range/Units 06:50 06:50 06:50 RBC 4.39 L (4.50-6.00) m/cumm Hgb 12.1 L (13.5-17.5) g/dL Hct 37.6 L (40.0-50.0) % RDW 21.0 H (11.8-14.1) % Plt Count 129 L (130-400) x1000/uL MPV 11.3 H (8.0-11.0) fL Absolute Lymphocytes 0.85 L (1.2-3.4) k/cumm Absolute Monocytes 1.04 H (0.11-0.7) k/cumm APTT 41.5 H (21.0-31.4) sec BUN 38 H (7-18) mg/dL Creatinine 1.67 H (0.70-1.30) mg/dL Glucose 183 H (74-106) mg/dL Vital Signs Temperature 37.1 C 02/15/20 11:20 Temperature Source Tympanic 02/15/20 11:20 Pulse 75 02/15/20 11:20 Pulse Rhythm Regular 02/15/20 08:59 Pulse 61 02/12/20 19:10 Respiratory Rate 17 02/15/20 11:20 Respiratory Effort Non-Labored 02/15/20 08:59 Respiratory Depth Normal 02/15/20 08:59 Respiratory Pattern Normal 02/15/20 08:59 Blood Pressure 149/88 H 02/15/20 11:20 Blood Pressure Mean 79 02/12/20 19:00 Pulse Oximetry 98 02/15/20 11:20 Oxygen Delivery Method Room Air 02/15/20 11:20 Oxygen Flow Rate 0 02/15/20 11:20 Pain Level 0 02/15/20 11:20 Comment 02/13/20 09:54 Intake & Output 02/14/20 02/15/20 02/15/20 23:59 11:59 23:59 Intake Total 287.917 / 673.375 404.2 / 404.2 Output Total 955 / 1905 1380 / 1730 350 / 1730 Balance -667.083 / -1231.625 -975.8 / -1325.8 -350 / -1325.8 Weight 87 kg Intake: IV 287.917 / 433.375 154.2 / 154.2 Oral 250 / 250 Output: Urine 955 / 1905 1380 / 1730 350 / 1730 Other: Urine Color Yellow Yellow Yellow Urine Appearance Clear Clear Clear Urine Odor Normal Normal Comment clear yellow urine drained from his urostomy urostomy urostomy Voiding Methods Ileal Conduit (Right) Ileal Conduit (Right) Laboratory Results WBC 8.06 k/cumm (4.4-10.8) D 02/15/20 06:50 RBC 4.39 m/cumm (4.50-6.00) L 02/15/20 06:50 Hgb 12.1 g/dL (13.5-17.5) L 02/15/20 06:50 Hct 37.6 % (40.0-50.0) L 02/15/20 06:50 MCV 85.6 fL (80-95) 02/15/20 06:50 MCH 27.6 pg (27.0-33.0) 02/15/20 06:50 MCHC 32.2 g/dL (32.0-36.0) 02/15/20 06:50 RDW 21.0 % (11.8-14.1) H 02/15/20 06:50 Plt Count 129 x1000/uL (130-400) L 02/15/20 06:50 MPV 11.3 fL (8.0-11.0) H 02/15/20 06:50 Immature Gran % 0.2 % 02/15/20 06:50 Neutrophils % 75.6 02/15/20 06:50 Band Neutrophils % 7.0 % 02/13/20 06:00 Lymphocytes % 10.5 02/15/20 06:50 Monocytes % 12.9 02/15/20 06:50 Eosinophils % 0.6 02/15/20 06:50 Basophils % 0.2 02/15/20 06:50 Absolute Neutrophils 6.09 k/cumm (1.2-6.7) 02/15/20 06:50 Absolute Lymphocytes 0.85 k/cumm (1.2-3.4) L 02/15/20 06:50 Absolute Monocytes 1.04 k/cumm (0.11-0.7) H 02/15/20 06:50 Absolute Eosinophils 0.05 k/cumm (0.0-0.7) 02/15/20 06:50 Absolute Basophils 0.02 k/cumm (0.0-0.2) 02/15/20 06:50 Differential Comment Manual differential 02/13/20 06:00 RBC Morphology See below 02/13/20 06:00 Polychromasia Present 02/13/20 06:00 Anisocytosis 2+ 02/13/20 06:00 APTT 41.5 sec (21.0-31.4) H 02/15/20 06:50 D-Dimer 2155 ng/mlFEU (<500) H 02/13/20 02:00 Sodium 140 mmol/L (136-145) 02/15/20 06:50 Potassium 3.9 mmol/L (3.5-5.1) 02/15/20 06:50 Chloride 107 mmol/L (98-107) 02/15/20 06:50 Carbon Dioxide 23.4 mmol/L (21.0-32.0) 02/15/20 06:50 Anion Gap 9.6 mmol/L (3-11) 02/15/20 06:50 BUN 38 mg/dL (7-18) H 02/15/20 06:50 Creatinine 1.67 mg/dL (0.70-1.30) H 02/15/20 06:50 Estimated GFR/1.73 m2 39.68 (mL/min/1.73m2) 02/15/20 06:50 Glucose 183 mg/dL (74-106) H 02/15/20 06:50 Lactate 1.0 mmol/L (0.6-1.4) 02/13/20 06:00 Calcium 8.8 mg/dL (8.5-10.1) 02/15/20 06:50 Magnesium 1.9 mg/dL (1.8-2.4) 02/15/20 06:50 Ferritin 99 ng/mL (26-388) 02/12/20 16:45 Total Bilirubin 0.7 mg/dL (0.2-1.0) 02/14/20 07:10 Conjugated Bilirubin 0.30 mg/dL (0.00-0.20) H 02/14/20 07:10 AST 26 U/L (15-37) 02/14/20 07:10 ALT 26 U/L (16-63) 02/14/20 07:10 Alkaline Phosphatase 119 U/L (46-116) H 02/14/20 07:10 Lactate Dehydrogenase 176 U/L (85-227) 02/12/20 16:45 Creatine Kinase 292 U/L (39-308) 02/13/20 06:00 Troponin I 0.05 ng/Ml (<0.06) 02/13/20 06:00 C-Reactive Protein 22.90 mg/dL (0.0-0.3) H 02/14/20 07:10 NT-Pro-B Natriuret Pep 6772 pg/mL (<300) H 02/13/20 06:00 Total Protein 7.2 g/dL (6.4-8.2) 02/14/20 07:10 Albumin 2.9 g/dL (3.4-5.0) L 02/14/20 07:10 Procalcitonin 18.0 ng/mL 02/15/20 06:50 TSH 1.53 uIU/mL (0.36-3.74) 02/13/20 06:00 Urine Color Yellow (Yellow) 02/14/20 00:50 Urine Clarity Clear (Clear) 02/14/20 00:50 Urine pH 7.0 (5-8) 02/14/20 00:50 Ur Specific [place] 1.020 (1.005-1.025) 02/14/20 00:50 Urine Protein 30 mg/dL (Negative) H 02/14/20 00:50 Urine Ketones Negative mg/dL (Negative) 02/14/20 00:50 Urine Blood Small (Negative) H 02/14/20 00:50 Urine Nitrite Negative (Negative) 02/14/20 00:50 Urine Bilirubin Negative (Negative) 02/14/20 00:50 Urine Urobilinogen 0.2 EU/dL (Up TO 0.2) 02/14/20 00:50 Ur Leukocyte Esterase Negative (Negative) 02/14/20 00:50 Urine RBC 0-2 HPF (0-2) 02/14/20 00:50 Urine WBC 0-2 HPF (0-5) 02/14/20 00:50 Ur Epithelial Cells Negative HPF (Negative) 02/14/20 00:50 Urine Crystals Negative HPF (Negative) 02/14/20 00:50 Urine Bacteria Rare HPF (Negative) 02/14/20 00:50 Urine Casts 0-2 hyaline LPF (Negative) 02/14/20 00:50 Urine Mucus Negative (Negative) 02/14/20 00:50 Urine Other Few renal (Negative) 02/14/20 00:50 Ur Culture Indicated? C&s done as ordered 02/14/20 00:50 Urine Glucose 100 mg/dL (Negative) 02/14/20 00:50
[2020-02-15 15:29] VITALS: BP 133/83; PULSE 68; RESP 17; TEMP 36.4; O2SAT 98
[2020-02-15 16:00] LABS: Streptococcus Pneumoniae Ag, U Negative (Negative)
[2020-02-15 19:46] VITALS: BP 146/84; PULSE 70; RESP 18; TEMP 37; O2SAT 97
[2020-02-15] MEDS: guaiFENesin 600 MG TABCR PO (19:48)
[2020-02-16] VITALS (7 sets, daily range): BP systolic 146–176; BP diastolic 74–108; PULSE 60–90; RESP 18–21; TEMP 36–37.1; O2SAT 94–99
[2020-02-16 06:19] LABS: Abs Immature Grans 0.02 k/cumm (0.0-0.09); Absolute Basophil Count 0.04 k/cumm (0.0-0.2); Absolute Lymphocyte Count 0.99 k/cumm (1.2-3.4); Absolute Monocyte Count 0.89 k/cumm (0.11-0.7); Absolute Neutrophil Count 4.93 k/cumm (1.2-6.7); Basophils % 0.6; Eosinophils % 1.4; HCT 38.1 % (40.0-50.0); HGB 12.4 g/dL (13.5-17.5); Immature Grans % 0.3 %; Lymphocytes % 14.2; Mean Corp. HGB Concentration 32.5 g/dL (32.0-36.0); Mean Corpuscular Hemoglobin 27.7 pg (27.0-33.0); Mean Corpuscular Volume 85.2 fL (80-95); Mean Platelet Volume 10.9 fL (8.0-11.0); Monocytes % 12.8; Neutrophils % 70.7; Platelet Count 166 x1000/uL (130-400); RBC 4.47 m/cumm (4.50-6.00); RBC Distribution Width 20.7 % (11.8-14.1); White Blood Cell Count 6.97 k/cumm (4.4-10.8)
[2020-02-16 06:30] LABS: Anion Gap 9.8 mmol/L (3-11); BUN 35 mg/dL (7-18); CO2 23.2 mmol/L (21.0-32.0); CREATININE 1.57 mg/dL (0.70-1.30); Calcium 8.8 mg/dL (8.5-10.1); Chloride 107 mmol/L (98-107); Estimated GFR 42.61 (mL/min/1.73m2); Glucose 151 mg/dL (74-106); Sodium 140 mmol/L (136-145)
[2020-02-16 06:32] LABS: PTT Activated 42.6 sec (21.0-31.4)
--- NOTE | 2020-02-16 07:45 | DI.US_ITS ---
APPROVED REPORT EXAM: Comprehensive 2D, Doppler, and color-flow Echocardiogram Patient Location: In-Patient Room/Bed: 230A Urology Surgeon: Marion Bryan RDCS (AE) Indications: Hypertrophic Cardiomyopahty Other Information Study Quality: Fair. Technically limited study due to body habitus. Conclusion Left Ventricle : The left ventricle is normal size. The left ventricular systolic function is normal. The left ventricular ejection fraction is within the normal range. The septum is mildly thickened. There is no LVOT obstruction at rest. There is normal LV segmental wall motion. The left ventricular diastolic function is normal. LVEF is 45-50%. Right Ventricle : Right ventricle is mild to moderately dilated. Right ventricular systolic function is grossly normal. Atria : Left atrium is mildly dilated. Right atrium is mildly dilated. Valves: There are no hemodynamically significant valvular lesions. IVC: IVC is normal in size and collapses >50% with inspiration. Estimated RVSP is 33mmHg. Compared to echocardiogram from 2017 done at , the patients EF has decreased from normal to mildly reduced. Wall motion Left Ventricle The left ventricle is normal size. The left ventricular systolic function is normal. The left ventric ular ejection fraction is within the normal range. The septum is mildly thickened. There is no LVOT o bstruction at rest. There is normal LV segmental wall motion. The left ventricular diastolic function is normal. There is no ventricular septal defect visualized. LVEF is 45-50%. Right Ventricle Right ventricle is mild to moderately dilated. Right ventricular systolic function is grossly normal. Atria Left atrium is mildly dilated. Right atrium is mildly dilated. The interatrial septum is intact with no evidence for an atrial septal defect. Aortic Valve The Aortic valve is sclerotic. Aortic valve is trileaflet. There is no aortic valvular stenosis. Trac e aortic regurgitation. Mitral Valve There is mitral annular calcification. No evidence of mitral valve stenosis. Mild mitral regurgitatio n. Tricuspid Valve The tricuspid valve is normal in structure. There is no tricuspid valve stenosis. Moderate tricuspid regurgitation. Pulmonic Valve Pulmonic valve is not well visualized. There is no pulmonic valvular stenosis. Trace pulmonic regurgi tation. Great Vessels The aortic root is normal in size. Ascending aorta is not well visualized. IVC is normal in size and collapses >50% with inspiration. Estimated RVSP is 33mmHg. Pericardium There is no pericardial effusion. 2D Dimensions IVSD d PLAX 1.90 cm M: 0.6-1.2 LV Vol A2C d MOD 86.2 mL LVPW d PLAX 1.25 cm M: 0.6 - 1.2 LV Vol A4C d MOD 98.1 mL LVID d PLAX 5.16 cm M: 4.2 - 5.8 LA Area A4C s MOD 24.39 cm2 LVDs 4.05 cm M: 2.5 - 4.0 LA Area A2C s MOD 20.60 cm2 Ao Root d 3.35 cm M: 3.1 - 3.7 LV EF A4C MOD 45.4 % LV EF Teichholz 41.9 % LV EF A2C MOD 47.4 % LVEF (Bauer's) 47.94 % M: 52 - 72 LV EF Biplane MOD 47.9 % LV Volume 99.95 mL M: 62 - 150 LV Vol Biplane MOD 99.9 mL FS 20.65 % LV Diastology MV E' medial 0.097 (>0.07 m/s) E/A Ratio 2.8 LV E/e MED 12.85 (<14) MV E Vmax 1.25 (0.4-1.3 m/s) MV E' lateral 0.130 (>0.1 m/s) MV A Vmax 0.45 (0.4-1.3 m/s) LV E/e LAT 9.55 (<14) MV E/A Ratio 2.68 MV E/E' medial 12.86 MV E/E' lateral 9.56 Aortic Valve LVOT Area 3.81 cm2 AoV Area Vmax 2.92 cm2 LVOT Vmax 0.92 m/s SANTOS Mean Vivek. 2.87 cm2 LVOT Mean Vivek. 0.66 m/s AR DT 2346 msec LVOT Peak Grad 3.4 mmHg AR PHT 680 msec LVOT Mean Grad 1.9 mmHg LVOT VTI 0.173 m LVOT Diam s 2.20 cm (M/F) 1.5-2.5 AoV Vmax 1.20 (0.5-1.3 m/s) Velocity Ratio 0.76 AoV Mean Vivek. 0.87 m/s AoV Peak Grad 5.8 mmHg LVOT SV 65.95 mL AoV Mean Grad 3.3 (<5 mmHg) AoV VTI 0.213 (0.18-0.25 m) AoV Area VTI 3.10 (2.5-4.5 cm2) Mitral Valve MV DT 190 (160-240 msec) MR Vmax 4.16 m/s MV PHT 55 msec MR VTI 1.188 m MV Area PHT 4.00 cm2 MR Peak Grad 69.1 mmHg MR Mean Grad 53.1 mmHg Tricuspid Valve TR Peak Grad 30.6 mmHg TR Vmax 2.77 m/s RA Pressure 3.00 mmHg RVSP (TR) 33.7 mmHg
--- NOTE | 2020-02-16 08:00 | DI.NM_ITS ---
EXAM: NM LUNG SCAN VENT PERF AEROS CLINICAL HISTORY: r/o PE, elevated Ddimer. TECHNIQUE: Injected Dose: Ventilation: 34.0 mCi Tc-99m DTPA via inhalation Perfusion: 4.8 mCi Tc-99m MAA via IV COMPARISON: XR CHEST 2V PA LATERAL from 02/16/2020 FINDINGS: Chest X-Ray: Clear lungs. Perfusion: Normal bilaterally. Ventilation:Mild patchiness which can be seen with COPD. Clumping of the radiopharmaceutical near th e gwen. IMPRESSION: 1. Low probability VQ examination. . . . Modified PIOPED II criteria Probability Criteria High Two or more segments of V/Q mismatch Low Normal Perfusion, Non segmental perfusion abnormalitie s, pleural effusion in at least 1/3 of pleural cavity with no other defect Radiograph/perfusion matched defect in mid to upper lung confined to segment, one to three small segmental perfusion defects (<25% of segment) Perfusion defect smaller than corresponding radiogra phic lesion. Intermediate All other findings DATA REPOSITORY:
[2020-02-16 08:20] LABS: Vitamin D 25 Total 29.7 ng/ml (30-100)
[2020-02-16 08:30] LABS: COVID-19 RT-PCR Result Negative (Negative)
[2020-02-16] MEDS: Insulin Aspart 300 UNITS/3 ML PEN SC ×4 (08:36→21:51)
[2020-02-16] MEDS: Latanoprost 0.005% 2.5 ML BTL OP (08:37)
[2020-02-16] MEDS: guaiFENesin 600 MG TABCR PO ×2 (08:38→19:44)
[2020-02-16] MEDS: Magnesium Oxide 400 MG TAB PO (08:38)
[2020-02-16] MEDS: Aspirin 81 MG CHEW PO (08:38)
[2020-02-16] MEDS: Sodium Bicarbonate 650 MG TAB PO (08:38)
[2020-02-16] MEDS: Simvastatin 20 MG TAB PO (08:38)
[2020-02-16] MEDS: Ascorbic Acid 500 MG TAB PO (08:38)
[2020-02-16] MEDS: Pantoprazole 20 MG TABCR PO (08:38)
[2020-02-16] MEDS: Ipratropium/Albuterol 4 GM 120 PUFF INH IH ×3 (09:15→19:44)
--- NOTE | 2020-02-16 12:09 | PGE_ITS ---
Date of Service Date of service: 02/16/20 Time of Service: 12:09 Assessment and Plan Assessment and plan (1) Gram-negative bacteremia: Start date: 02/16/20 Start time: 12:14 Status: Acute Assessment and plan: multiple attempts to contact ID regarding duration and choice. Blood culture growing e. coli pansensitive. Currently on cefepime. Unable to take fluroquinoline due to MG. Will transition to cefpodoxime and continue to try to reach ID. Question of duration of medication. Echo with no leaflet vegetations. EF mildly reduced. Afebrile. Will repeat procalcitonin huseyin, though unsure how accurate this is in setting of cancer. Patient looks and feels much improved. Continue to monitor. (2) Sepsis: Start date: 02/16/20 Start time: 12:17 Status: Resolved Assessment and plan: resolved. (3) HCAP (healthcare-associated pneumonia): Start date: 02/16/20 Start time: 12:17 Status: Acute Assessment and plan: Present on admission. Continue empiric cefepime. 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 Continue Combivent and prn albuterol MDI. Not requiring O2 today. Qualifiers: COPD type: COPD with acute lower respiratory infection Qualified Code(s): J44.0 - Chronic obstructive pulmonary disease with (acute) lower respiratory infection (8) Chronic kidney disease: Start date: 02/16/20 Start time: 12:28 Status: Chronic Assessment and plan: resolved patient at baseline creatinine. continue to monitor renal function Qualifiers: Chronic kidney disease stage: stage 3 (moderate) Qualified Code(s): N18.3 - Chronic kidney disease, stage 3 (moderate) (9) Hypertrophic cardiomyopathy: Start date: 02/16/20 Start time: 12:28 Status: Acute Assessment and plan: Echo with LVEF 45-50%. Seputm mildly thick, Right Ventrilce moderately dilated. Right Vent moderately dilated. Left atrium mildly dilated, no hemodynamically valvular lesions IVC greater 50%, RVSP 33. (10) Elevated d-dimer: Start date: 02/16/20 Start time: 12:32 Status: Acute Assessment and plan: COVID 19 negative. D-Dimer likely elevated secondary to ca. Will continue heparin gtt at this point as he is at higher risk due to hypercoaguability, vq scan today-results pending. Not requiring oxygen and no symptoms of DVT. (11) DVT prophylaxis: Start date: 02/16/20 Start time: 12:32 Status: Acute Assessment and plan: ON therapeutic heparin gtt. Will d/c if negative vq scan (12) Discharge planning issues: Start date: 02/16/20 Start time: 12:32 Status: Acute Assessment and plan: DNR/DNI, palliative patient Above case discussed with Dr. Perez who is in agreement with treatment. Subjective Subjective Patient reports: no new complaints Interval history since last seen: Feeling better doing well. Several attempts to [facility] ID to speak about antibiotic regimen. No return call. Will transition from Cefepime to cefpodoxime po. Monitor overnight, vq scan pending. Patient wants to go home. Exam Narrative Exam Narrative: General: Very pleasant elderly male, A&Ox3, sitting comfortably in a chair on room air, no respiratory distress noted HEENT: EOMI, MMM Heart: RRR with an occasional extra beat Lungs: LSC, no rhonchi, rales or wheezing Abdomen: soft, nontender, bsx4, ileal conduit in place, colostomy in place stoma s pink, Extremities: no edema BLE's, feet are cold Objective Objective Clinical Data: Abnormal lab results 02/13/20 02/16/20 02/16/20 Range/Units 06:00 06:03 06:03 RBC 4.47 L (4.50-6.00) m/cumm Hgb 12.4 L (13.5-17.5) g/dL Hct 38.1 L (40.0-50.0) % RDW 20.7 H (11.8-14.1) % Absolute Lymphocytes 0.99 L (1.2-3.4) k/cumm Absolute Monocytes 0.89 H (0.11-0.7) k/cumm APTT (21.0-31.4) sec BUN 35 H (7-18) mg/dL Creatinine 1.57 H (0.70-1.30) mg/dL Glucose 151 H (74-106) mg/dL 25-OH Vitamin D Total 29.7 L (30-100) ng/ml 02/16/20 Range/Units 06:03 RBC (4.50-6.00) m/cumm Hgb (13.5-17.5) g/dL Hct (40.0-50.0) % RDW (11.8-14.1) % Absolute Lymphocytes (1.2-3.4) k/cumm Absolute Monocytes (0.11-0.7) k/cumm APTT 42.6 H (21.0-31.4) sec BUN (7-18) mg/dL Creatinine (0.70-1.30) mg/dL Glucose (74-106) mg/dL 25-OH Vitamin D Total (30-100) ng/ml Vital Signs Temperature 36.8 C 02/16/20 11:44 Temperature Source Temporal Artery Scan 02/16/20 11:44 Pulse 65 02/16/20 11:44 Pulse Rhythm Regular 02/16/20 09:05 Pulse 61 02/12/20 19:10 Respiratory Rate 18 02/16/20 11:44 Respiratory Effort Non-Labored 02/16/20 09:05 Respiratory Depth Normal 02/16/20 09:05 Respiratory Pattern Normal 02/16/20 09:05 Blood Pressure 149/79 H 02/16/20 11:44 Blood Pressure Mean 79 02/12/20 19:00 Pulse Oximetry 98 02/16/20 11:44 Oxygen Delivery Method Room Air 02/16/20 11:44 Oxygen Flow Rate 0 02/16/20 11:44 Pain Level 0 02/16/20 11:44 Comment 02/13/20 09:54 Intake & Output 02/15/20 02/16/20 02/16/20 23:59 11:59 23:59 Intake Total 675.8 / 1530.0 461.6 / 461.6 Output Total 2175 / 3555 950 / 950 Balance -1499.2 / -2025.0 -488.4 / -488.4 Weight 85.5 kg Intake: IV 195.8 / 350.0 161.6 / 161.6 Oral 480 / 1180 300 / 300 Output: Urine 1950 / 3330 950 / 950 Stool 225 / 225 Other: Urine Color Yellow Yellow Urine Appearance Clear Clear Urine Odor None None Comment urostomy Stool Size Moderate Moderate Stool Characteristics Formed Soft Hard Formed Voiding Methods Ileal Conduit (Right) Ileal Conduit (Right) Laboratory Results WBC 6.97 k/cumm (4.4-10.8) 02/16/20 06:03 RBC 4.47 m/cumm (4.50-6.00) L 02/16/20 06:03 Hgb 12.4 g/dL (13.5-17.5) L 02/16/20 06:03 Hct 38.1 % (40.0-50.0) L 02/16/20 06:03 MCV 85.2 fL (80-95) 02/16/20 06:03 MCH 27.7 pg (27.0-33.0) 02/16/20 06:03 MCHC 32.5 g/dL (32.0-36.0) 02/16/20 06:03 RDW 20.7 % (11.8-14.1) H 02/16/20 06:03 Plt Count 166 x1000/uL (130-400) 02/16/20 06:03 MPV 10.9 fL (8.0-11.0) 02/16/20 06:03 Immature Gran % 0.3 % 02/16/20 06:03 Neutrophils % 70.7 02/16/20 06:03 Band Neutrophils % 7.0 % 02/13/20 06:00 Lymphocytes % 14.2 02/16/20 06:03 Monocytes % 12.8 02/16/20 06:03 Eosinophils % 1.4 02/16/20 06:03 Basophils % 0.6 02/16/20 06:03 Absolute Neutrophils 4.93 k/cumm (1.2-6.7) 02/16/20 06:03 Absolute Lymphocytes 0.99 k/cumm (1.2-3.4) L 02/16/20 06:03 Absolute Monocytes 0.89 k/cumm (0.11-0.7) H 02/16/20 06:03 Absolute Eosinophils 0.10 k/cumm (0.0-0.7) 02/16/20 06:03 Absolute Basophils 0.04 k/cumm (0.0-0.2) 02/16/20 06:03 Differential Comment Manual differential 02/13/20 06:00 RBC Morphology See below 02/13/20 06:00 Polychromasia Present 02/13/20 06:00 Anisocytosis 2+ 02/13/20 06:00 APTT 42.6 sec (21.0-31.4) H 02/16/20 06:03 D-Dimer 2155 ng/mlFEU (<500) H 02/13/20 02:00 Sodium 140 mmol/L (136-145) 02/16/20 06:03 Potassium 4.0 mmol/L (3.5-5.1) 02/16/20 06:03 Chloride 107 mmol/L (98-107) 02/16/20 06:03 Carbon Dioxide 23.2 mmol/L (21.0-32.0) 02/16/20 06:03 Anion Gap 9.8 mmol/L (3-11) 02/16/20 06:03 BUN 35 mg/dL (7-18) H 02/16/20 06:03 Creatinine 1.57 mg/dL (0.70-1.30) H 02/16/20 06:03 Estimated GFR/1.73 m2 42.61 (mL/min/1.73m2) 02/16/20 06:03 Glucose 151 mg/dL (74-106) H 02/16/20 06:03 Lactate 1.0 mmol/L (0.6-1.4) 02/13/20 06:00 Calcium 8.8 mg/dL (8.5-10.1) 02/16/20 06:03 Magnesium 1.9 mg/dL (1.8-2.4) 02/15/20 06:50 Ferritin 99 ng/mL (26-388) 04/16/20 16:45 Total Bilirubin 0.7 mg/dL (0.2-1.0) 02/14/20 07:10 Conjugated Bilirubin 0.30 mg/dL (0.00-0.20) H 02/14/20 07:10 AST 26 U/L (15-37) 02/14/20 07:10 ALT 26 U/L (16-63) 02/14/20 07:10 Alkaline Phosphatase 119 U/L (46-116) H 02/14/20 07:10 Lactate Dehydrogenase 176 U/L (85-227) 02/12/20 16:45 Creatine Kinase 292 U/L (39-308) 02/13/20 06:00 Troponin I 0.05 ng/Ml (<0.06) 02/13/20 06:00 C-Reactive Protein 22.90 mg/dL (0.0-0.3) H 02/14/20 07:10 NT-Pro-B Natriuret Pep 6772 pg/mL (<300) H 02/13/20 06:00 Total Protein 7.2 g/dL (6.4-8.2) 02/14/20 07:10 Albumin 2.9 g/dL (3.4-5.0) L 02/14/20 07:10 25-OH Vitamin D Total 29.7 ng/ml (30-100) L 02/13/20 06:00 Procalcitonin 18.0 ng/mL 02/15/20 06:50 TSH 1.53 uIU/mL (0.36-3.74) 02/13/20 06:00 Urine Color Yellow (Yellow) 02/14/20 00:50 Urine Clarity Clear (Clear) 02/14/20 00:50 Urine pH 7.0 (5-8) 02/14/20 00:50 Ur Specific Carlotta 1.020 (1.005-1.025) 02/14/20 00:50 Urine Protein 30 mg/dL (Negative) H 02/14/20 00:50 Urine Ketones Negative mg/dL (Negative) 02/14/20 00:50 Urine Blood Small (Negative) H 02/14/20 00:50 Urine Nitrite Negative (Negative) 02/14/20 00:50 Urine Bilirubin Negative (Negative) 02/14/20 00:50 Urine Urobilinogen 0.2 EU/dL (Up TO 0.2) 02/14/20 00:50 Ur Leukocyte Esterase Negative (Negative) 02/14/20 00:50 Urine RBC 0-2 HPF (0-2) 02/14/20 00:50 Urine WBC 0-2 HPF (0-5) 02/14/20 00:50 Ur Epithelial Cells Negative HPF (Negative) 02/14/20 00:50 Urine Crystals Negative HPF (Negative) 02/14/20 00:50 Urine Bacteria Rare HPF (Negative) 02/14/20 00:50 Urine Casts 0-2 hyaline LPF (Negative) 02/14/20 00:50 Urine Mucus Negative (Negative) 02/14/20 00:50 Urine Other Few renal (Negative) 02/14/20 00:50 Ur Culture Indicated? C&s done as ordered 02/14/20 00:50 Urine Glucose 100 mg/dL (Negative) 02/14/20 00:50 Coronavirus (PCR) Negative (Negative) 02/12/20 22:00 Ur Strep pneumoniae Ag Negative (Negative) 02/12/20 22:00
--- NOTE | 2020-02-16 14:45 | DI.RAD_ITS ---
EXAM: XR CHEST 2V PA LATERAL CLINICAL HISTORY: requested by nuclear med TECHNIQUE: 2D digital imaging was performed. COMPARISON: XR PORTABLE CHEST AP from 02/12/2020 NM LUNG SCAN VENT PERF AEROS from 02/16/2020 FINDINGS: A pacemaker is again noted. The heart is mildly enlarged and the aorta is tortuous, unchanged. The lungs appear clear. No infiltrates or effusions are seen. IMPRESSION: Cardiomegaly. No acute abnormality.
--- NOTE | 2020-02-16 15:12 | PDOC.CMPRO ---
- If Service Date Differs Date of service: 02/16/20 Time of Service: 15:12 Care Management Progress Note S/O: Abdullahi was sitting up in a chair when CM met with him. He was very pleasant and engaged readily in conversation. Asif shared that he hopes to be able to go home today but that he feels his provider will want him to remain one more day. On admission he had positive blood cultures with E. Coli. On 02/14/20 Asif had repeat blood cultures which remain negative at 48 hours. He is afebrile, his WBC has normalized and his vital signs are stable. Asif stated that he is feeling much better. A: Asif is a 79 year old male with multiple comorbidity's admitted to the RICU with Resp symptoms, COVID - 19 rule out and HCAP, positive blood cultures, receiving IV abx for bacteria infection. P: Asif remains inpatient today and will likely be discharged home with no new services when ready.Current outpatient services include resumption of home health nursing and PT, palliative care and oncology. He will be transported home via private car with spouse when discharged. CM to continue to support patient, family and discharge needs.
[2020-02-16] MEDS: Normal Saline Flush 10 ML SYR IVP (15:21)
[2020-02-16] MEDS: Cefpodoxime 200 MG TAB PO (19:44)
[2020-02-17 03:49] VITALS: BP 127/54; PULSE 60; RESP 16; TEMP 37.2; O2SAT 94
[2020-02-17 07:02] LABS: Abs Immature Grans 0.03 k/cumm (0.0-0.09); Absolute Basophil Count 0.02 k/cumm (0.0-0.2); Absolute Eosinophil Count 0.06 k/cumm (0.0-0.7); Absolute Lymphocyte Count 0.89 k/cumm (1.2-3.4); Absolute Monocyte Count 0.97 k/cumm (0.11-0.7); Absolute Neutrophil Count 5.86 k/cumm (1.2-6.7); Basophils % 0.3; Eosinophils % 0.8; HCT 36.4 % (40.0-50.0); HGB 11.9 g/dL (13.5-17.5); Immature Grans % 0.4 %; Lymphocytes % 11.4; Mean Corp. HGB Concentration 32.7 g/dL (32.0-36.0); Mean Corpuscular Hemoglobin 27.7 pg (27.0-33.0); Mean Corpuscular Volume 84.8 fL (80-95); Mean Platelet Volume 10.9 fL (8.0-11.0); Monocytes % 12.4; Neutrophils % 74.7; Platelet Count 184 x1000/uL (130-400); RBC 4.29 m/cumm (4.50-6.00); RBC Distribution Width 20.3 % (11.8-14.1); White Blood Cell Count 7.83 k/cumm (4.4-10.8)
[2020-02-17 07:14] LABS: Anion Gap 10.6 mmol/L (3-11); BUN 33 mg/dL (7-18); CO2 20.4 mmol/L (21.0-32.0); CREATININE 1.58 mg/dL (0.70-1.30); Calcium 9.1 mg/dL (8.5-10.1); Chloride 107 mmol/L (98-107); Glucose 158 mg/dL (74-106); Potassium 4.3 mmol/L (3.5-5.1); Sodium 138 mmol/L (136-145)
[2020-02-17 07:38] LABS: PTT Activated 26.8 sec (21.0-31.4)
[2020-02-17 08:00] VITALS: BP 130/79; PULSE 73; RESP 18; TEMP 37.1; O2SAT 96
[2020-02-17] MEDS: Pantoprazole 20 MG TABCR PO (08:02)
[2020-02-17] MEDS: Cefpodoxime 200 MG TAB PO (08:02)
[2020-02-17] MEDS: guaiFENesin 600 MG TABCR PO (08:02)
[2020-02-17] MEDS: Ascorbic Acid 500 MG TAB PO (08:02)
[2020-02-17] MEDS: Aspirin 81 MG CHEW PO (08:02)
[2020-02-17] MEDS: Latanoprost 0.005% 2.5 ML BTL OP (08:02)
[2020-02-17] MEDS: Simvastatin 20 MG TAB PO (08:02)
[2020-02-17] MEDS: Sodium Bicarbonate 650 MG TAB PO (08:02)
[2020-02-17] MEDS: Ipratropium/Albuterol 4 GM 120 PUFF INH IH (08:15)
[2020-02-17 08:17] VITALS: RESP 12
[2020-02-17] MEDS: Insulin Aspart 300 UNITS/3 ML PEN SC (08:35)
--- NOTE | 2020-02-17 10:05 | DSE_ITS ---
Date of service: 02/17/20 Time of Service: 10:05 DS: Diagnosis Discharge Diagnosis (1) POLST (Physician Orders for Life-Sustaining Treatment): Status: Chronic (2) Hypertrophic cardiomyopathy: Status: Acute (3) COPD (chronic obstructive pulmonary disease): Status: Chronic (4) HCAP (healthcare-associated pneumonia): Status: Acute (5) Adenocarcinoma of rectosigmoid junction: Status: Chronic (6) Colostomy in place: Status: Chronic (7) Palliative care patient: Status: Chronic (8) Myasthenia gravis: Status: Chronic (9) Diabetes mellitus: Status: Chronic (10) Chronic kidney disease: Status: Chronic (11) Elevated d-dimer: Status: Acute (12) Gram-negative bacteremia: Status: Acute (13) Sepsis: Status: Resolved Discharge Plan Disposition Patient Disposition: HOME W/HOME HEALTH SERVICE Condition: Improving Discharge Details Chief Complaint: Fever Reason For Visit: RESP FAILURE SUSPECTED COVID 19 HCAP Admit Date/Time: 02/12/20 16:53 Admit Provider: Juli Armando Attending Provider: Juli Armando Primary Care Provider: Gala Carmichael V ED Provider: Gavino Rico [facility] Course Hospital Course: Abdullahi was admiited for sepsis with pneumonia, treated as HCAP, he has been ruled out for COVID - 19 D-Dimer likely elevated secondary to cancer. He was not requiring oxygen and no symptoms of DVT. He was placed on Heparin drip while ruled out for PE by VQ scan and had an echo when compared to echocardiogram from 2017 done at , the patients EF has decreased from normal to mildly reduced. Blood culture grew e. coli pansensitive. treated with cefepime. his second blood cultures have no growth to date. He will be down-stepped to cefpodoxime for 2 additional weeks. he is eating and drinking well, ostomies functioning well with good output. he has been afebrile and hemodynamically stable. he will be discharged to home with resumption of home health services. Home Meds and New Rx's Prescriptions: New cefpodoxime 200 mg Tablet 200 mg PO BID Qty: 28 RF: 0 Continued pantoprazole [Protonix] 20 mg tablet,delayed release (DR/EC) 20 mg PO DAILY RF: 0 albuterol sulfate [ProAir HFA] 90 mcg/actuation HFA aerosol inhaler 2 puff IH Q6H PRNRF: 0 (DME) OneTouch Ultra Test 1 EACH strip 1 ea Miscellaneous BID RF: 0 (DME) lancets [OneTouch UltraSoft Lancets] 1 EACH misc 1 ea Miscellaneous BID RF: 0 (DME) blood-glucose meter [OneTouch UltraMini] 1 EACH kit 1 ea Miscellaneous BID RF: 0 simvastatin 20 MG tablet 20 mg PO DAILY RF: 0 aspirin 81 MG tablet,chewable 81 mg PO DAILY RF: 0 albuterol sulfate [ProAir HFA] 8.5 GM HFA aerosol inhaler 2 puff Inhalation Q6H PRN RF: 0 Atrovent HFA 12.9 GM HFA aerosol inhaler 34 mcg Inhalation Q6H PRN RF: 0 ascorbic acid (vitamin C) 500 mg capsule 500 mg PO DAILY RF: 0 Atrovent HFA 17 mcg/actuation HFA aerosol inhaler 2 puff IH QID PRNRF: 0 latanoprost 0.005 % drops 1 drp OP DAILY RF: 0 ipratropium-albuterol 0.5 mg-3 mg(2.5 mg base)/3 mL solution for nebulization 3 ml IH Q4H PRNRF: 0 pyridostigmine bromide 60 mg tablet 30 mg PO TID Qty: 270 RF: 3 sodium bicarbonate 650 mg Tablet 650 mg PO DAILY RF: 0 magnesium oxide 400 mg magnesium Tablet 400 mg PO DAILY RF: 0 Discharge Instructions Instructions: Bacterial Pneumonia (DC), Bacteremia (DC) Additional Instructions: complete your 2 week course of antibiotics even if you feel better your home health services will resume. drink at least 6-8 glasses of water daily to stay well hydrated. Stand Alone Forms: Nursing Discharge Form Referrals: Gala Carmichael MD [Primary Care Provider] - 03/04/20 8:45 am (Follow up appointment via phone.) Activity:: Activity as Tolerated Equipment/Supplies:: No Equipment Needed Diet:: As Tolerated Discharge Orders Discharge Orders: Discharge Order (Routine); Ordered 02/17/20 Ordered By: Viktoriya Jones Discharge Data Discharge Date/Time-TO BE ENTERED AT DEPARTURE: 02/17/20 11:26 DS: Summary Status at Discharge Functional status at discharge: uses cane/walker Overall status at discharge: patient is progressing back to baseline Mental Status: mental status grossly normal Speech and Movement: speech and movement normal Mood: congruent mood Affect: normal affect Exam Narrative Exam Narrative: General: Very pleasant elderly male of stated age, A&Ox3, sitting comfortably in a chair on room air, no distress HEENT:straumatic, normocephalic, EOMI, MMM Heart: RRR well perfused Lungs: clear bilaterally, respirations even and unlabored, oxygenating well on room air Abdomen: soft, nontender, bsx4, ileal conduit in place, colostomy in place stomas pink Psychiatric: normal mood and affect Skin: no rashes or lesions Extremities: no edema BLE's,moves all extremities equally Psych Mental Status: mental status grossly normal Speech and Movement: speech and movement normal Mood: congruent mood Affect: normal affect DS: Data Vitals/I&O Vitals and I&O: Vital Signs Temperature 37.2 C 02/17/20 03:49 Temperature Source Tympanic 02/17/20 03:49 Pulse 60 02/17/20 03:49 Pulse Rhythm Regular 02/17/20 00:49 Pulse 61 02/12/20 19:10 Respiratory Rate 12 02/17/20 08:17 Respiratory Effort 02/17/20 08:17 Respiratory Depth Normal 02/17/20 08:17 Respiratory Pattern Normal 02/17/20 08:17 Blood Pressure 127/54 L 02/17/20 03:49 Blood Pressure Mean 79 02/12/20 19:00 Pulse Oximetry 94 L 02/17/20 03:49 Oxygen Delivery Method Room Air 02/17/20 03:49 Oxygen Flow Rate 0 02/17/20 03:49 Pain Level 0 02/16/20 16:08 Comment 02/13/20 09:54 Intake & Output 02/16/20 02/16/20 02/17/20 11:59 23:59 11:59 Intake Total 461.6 / 1294.8 833.2 / 1294.8 Output Total 950 / 2300 1350 / 2300 150 / 150 Balance -488.4 / -1005.2 -516.8 / -1005.2 -150 / -150 Weight 85.5 kg 85.6 kg Intake: IV 161.6 / 264.8 103.2 / 264.8 Oral 300 / 1030 730 / 1030 Output: Urine 950 / 1900 950 / 1900 150 / 150 Stool 400 / 400 Other: Urine Color Yellow Yellow Yellow Urine Appearance Clear Clear Clear Urine Odor None Normal Stool Size Moderate Stool Characteristics Soft Formed Voiding Methods Ileal Conduit (Right) Ileal Conduit (Right) Ileal Conduit (Right) Data Completed and Pending Labs on day of discharge: Labs from last 24 hours 02/17/20 02/17/20 02/17/20 06:40 06:40 06:40 WBC 7.83 RBC 4.29 L Hgb 11.9 L Hct 36.4 L MCV 84.8 MCH 27.7 MCHC 32.7 RDW 20.3 H Plt Count 184 MPV 10.9 Immature Gran % 0.4 Neutrophils % 74.7 Lymphocytes % 11.4 Monocytes % 12.4 Eosinophils % 0.8 Basophils % 0.3 Absolute Neutrophils 5.86 Absolute Lymphocytes 0.89 L Absolute Monocytes 0.97 H Absolute Eosinophils 0.06 Absolute Basophils 0.02 APTT 26.8 Sodium 138 Potassium 4.3 Chloride 107 Carbon Dioxide 20.4 L Anion Gap 10.6 BUN 33 H Creatinine 1.58 H Estimated GFR/1.73 m2 42.30 Glucose 158 H Calcium 9.1 Preliminary micro results at discharge 02/14/20 07:20 Blood Culture - Preliminary Blood NO GROWTH 72 HOURS 02/14/20 07:10 Blood Culture - Preliminary Blood NO GROWTH 72 HOURS [facility] Medical History (Updated 02/16/20 @ 20:06 by Ling Woodard MD) Abdominal aneurysm without mention of rupture (Acute) Allergic rhinitis (Acute) Atrial fibrillation (Chronic) Chronic kidney disease (Chronic) Colostomy in place (Chronic) COPD (chronic obstructive pulmonary disease) (Chronic) Diabetes mellitus (Chronic) DNI (do not intubate) (Acute) DNR (do not resuscitate) (Acute) GERD (gastroesophageal reflux disease) (Chronic) Hearing loss (Acute) Heart murmur (Acute) Hematochezia (Acute) History of bladder cancer (Acute) 2010; 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 Myasthenia gravis (Chronic 10/16/16) Pacemaker (Acute) 2/2 heart block Palliative care patient (Chronic) POLST (Physician Orders for Life-Sustaining Treatment) (Chronic) Shoulder fracture, right (Acute) Tobacco abuse (Acute) Surgical History (Updated 02/13/20 @ 00:54 by Stevenson Cnanon) H/O hernia repair (Chronic) H/O prostatectomy (Chronic) Cystoprostatectomy with bilateral lymphadenectomy with ileal loop urinary diversion 2010. H/O total cystectomy (Acute) History of low anterior resection of rectum (Acute 12/30/19) [facility], Dr. Zafar Carey S/P placement of cardiac pacemaker (Acute) 07/2018 S/P tonsillectomy and adenoidectomy (Acute) Family History Mother Glaucoma Brother Patient's brother is Sister Patient's sister is Social History (Updated 02/16/20 @ 19:59 by Ling Woodard MD) Smoking/Tobacco Use Status: Former Tobacco Use Tobacco: How many years used: 40 Alcohol Intake: current Alcohol Intake frequency: a few times a week Drug use: Never Substance use type: does not use Caregiver/Support person: Yes Household members: spouse Housing: house Communication Needs: Hard of Hearing and Corrective Lenses Education Level: high school Do you need help understanding health information?: Often current occupation: Retired maintenance What is your relationship status?: How often do you talk on the phone with friends or family?: once per week How often do you get together with friends or relatives?: never Panel score (0-1 are the most socially isolated patients): 1 What type of physical activity do you participate in: walking, irregular exercise and sedentary lifestyle Frequency: 1-2 times per week Working smoke detector in home: Yes Fire extinguisher in home: Yes Do you feel safe at home: Yes Do you feel safe in your relationship?: Yes Additional Social history: to Yolie x >50 years. Lives in [place], [place]. Happy overall.
[2020-02-17] MEDS: Magnesium Oxide 400 MG TAB PO (10:30)
--- NOTE | 2020-02-17 16:20 | PDOC.CMDIS ---
- If Service Date Differs Date of service: 02/17/20 Time of Service: 16:20 LACE Index Scoring Tool - Questions: Length of Stay (in days): 4 - 6 Acuity (Admit via E.D.?): Yes Comorbidities: Diabetes w/o Complication, Any Tumor, Connective Tissue Disease, Liver or Renal Disease E.D. Visits: 1 - Answers: Total Score: 13 Risk of Readmission: High Risk Care Management Discharge Reason for Hospitalization: Resp Failure, COVID - 19 rule out and HCAP Discharge Plan: Asif will be discharged home with a resumption of home health services. He will follow up with his PCP and discharge plan of care. Asif will transport via private vehicle with his Yolie. Patient/Family Education Needs: Discharge plan, limitations, Ask Me Three
== END 2020-02-17 11:26 | disposition home health service (06) | DRG 871 ==
LOC: ER 20:24 → RCU 20:32 → MS 02-14 06:09 → RCU 02-18 09:16
PROVIDERS: Family Medicine; General Practice; Internal Medicine; Nurse Practitioner Family; Admitting Provider Internal Medicine; Emergency Provider Student in an Organized Health Care Education/Training Program; PCP Family Medicine; Visit Provider Internal Medicine
DX: A41.51 Sepsis due to Escherichia coli [E. coli] (principal); J18.9 Pneumonia, unspecified organism; C19 Malignant neoplasm of rectosigmoid junction; I42.2 Other hypertrophic cardiomyopathy; I12.0 Hypertensive chronic kidney disease with stage 5 chronic kidney disease or end stage renal disease; Z16.11 Resistance to penicillins; Y95 Nosocomial condition; R09.02 Hypoxemia; G70.00 Myasthenia gravis without (acute) exacerbation; E11.22 Type 2 diabetes mellitus with diabetic chronic kidney disease; J44.9 Chronic obstructive pulmonary disease, unspecified; N18.3 Chronic kidney disease, stage 3 (moderate); R79.1 Abnormal coagulation profile; I48.0 Paroxysmal atrial fibrillation; K21.9 Gastro-esophageal reflux disease without esophagitis; Z95.0 Presence of cardiac pacemaker; Z87.891 Personal history of nicotine dependence; Z93.3 Colostomy status; Z51.5 Encounter for palliative care; Z85.51 Personal history of malignant neoplasm of bladder; Z66 Do not resuscitate; I08.1 Rheumatic disorders of both mitral and tricuspid valves
CPT/HCPCS: 36415; 80048; 80053; 80076; 82306; 82550; 84145; 87040; 87077; 87081; 93005; 93306; 94640; 96361; 96365; 96367; 99232; 99233; 99239; 99254; 99285; 99291; U0003; 71045; 71046; 78582; 81003; 81015; 82728; 83605; 83615; 83735; 83880; 84443; 84484; 85025; 85379; 85730; 86140; 87070; 87086; 87186; 87205; 87450; 93010; J0456; J0696; J1941; J3490

== ENCOUNTER 2020-05-25 11:27 | Outpatient (REF) | payer OTHER, SELFPAY ==
[2020-05-25 19:24] LABS: MCH 28.1 pg (27.0-33.0); MCHC 31.8 % (32.0-36.0); MCV 88.4 fL (80-95); MPV 12.2 fL (8.0-11.0); Platelet Count 162 10^3/uL (130-400); RBC 4.98 10^6/uL (4.36-5.78); RDW-SD 53.7 fL; WBC 6.56 10^3/uL (4.4-10.8)
[2020-05-25 19:49] LABS: Anion Gap 12.5 mmol/L (3-11); BUN 26 mg/dL (7-18); CO2 21.5 mmol/L (21.0-32.0); CREATININE 1.67 mg/dL (0.70-1.30); Calcium 9.3 mg/dL (8.5-10.1); Chloride 104 mmol/L (98-107); Estimated GFR 39.58 (mL/min/1.73m2); Glucose 237 mg/dL (74-106); Potassium 4.1 mmol/L (3.5-5.1); Sodium 138 mmol/L (136-145)
[2020-05-25 19:50] LABS: Hemoglobin A1C 8.6 % (3.8-5.6)
== END 2020-05-25 11:47 ==
LOC: NCHCN 11:27
PROVIDERS: PCP Family Medicine; Visit Provider Family Medicine
DX: D64.9 Anemia, unspecified (principal); N28.9 Disorder of kidney and ureter, unspecified; I48.91 Unspecified atrial fibrillation; E11.65 Type 2 diabetes mellitus with hyperglycemia
CPT/HCPCS: 80048; 85027; 83036

== ENCOUNTER 2020-09-21 20:56 | Outpatient (REF) | payer OTHER, SELFPAY ==
[2020-09-21 21:09] LABS: Abs Immature Grans 0.03 10^3/uL (0.0-0.06); Absolute Basophil Count 0.05 10^3/uL (0.0-0.2); Absolute Eosinophil Count 0.08 10^3/uL (0.0-0.7); Absolute Lymphocyte Count 1.65 10^3/uL (1.2-3.4); Basophils % 0.6; HCT 44.4 % (40.0-50.0); HGB 13.8 g/dL (13.5-17.5); Immature Grans % 0.4; Lymphocytes % 19.9; MCH 28.8 pg (27.0-33.0); MCHC 31.1 % (32.0-36.0); MCV 92.5 fL (80-95); Neutrophils % 66.1; Nucleated RBC 0 %; Platelet Count 187 10^3/uL (130-400); RDW 15.9 % (11.8-14.1); RDW-SD 54.8 fL; WBC 8.31 10^3/uL (4.4-10.8)
[2020-09-21 21:21] LABS: Anion Gap 10.5 mmol/L (3-11); BUN 39 mg/dL (7-18); CO2 21.5 mmol/L (21.0-32.0); CREATININE 1.99 mg/dL (0.70-1.30); Calcium 8.9 mg/dL (8.5-10.1); Chloride 106 mmol/L (98-107); Estimated GFR 32.33 (mL/min/1.73m2); Glucose 247 mg/dL (74-106); Potassium 4.6 mmol/L (3.5-5.1); Sodium 138 mmol/L (136-145)
== END 2020-09-21 21:16 ==
LOC: NCHCN 20:56
PROVIDERS: PCP Family Medicine; Visit Provider Nurse Practitioner Family
DX: E11.65 Type 2 diabetes mellitus with hyperglycemia (principal)
CPT/HCPCS: 80048; 85025